=== PATIENT | female | born 1950 | race Caucasian/White ===

== ENCOUNTER 2018-06-21 11:00 | Inpatient (IN) ==
[~2018-06-21 11:00] MED LIST: *HR* Norepinephrine 4 MG/4 ML VIAL IVC ONE
[2018-06-21] MEDS ORDERED: 0.9 % Sodium Chloride 1,000 ML ONE ×2 (11:14→13:38)
[2018-06-21 11:27] LABS: ABG Base Excess -8 mEq/L (-2 to 3); ABG HCO3 18 mEq/L (21-27); ABG Oxygen Saturation 99 % (95-98); ABG PCO2 38 mmHg (35-45); ABG PO2 130 mmHg (85-104); ABG TCO2 20 mEq/L (20-26); Blood Gas Modality BiLevel; Blood Gas PEEP 16 cm H2O; Blood Gas Pressure Support 8 cm H2O
--- NOTE | 2018-06-21 11:31 | Emergency Department Note ---
Disposition Clinical Impression: Septic shock, Altered mental status, Transaminitis, Acute kidney injury, Elevated bilirubin, Abdominal pain Disposition: Admitted As Inpatient Condition: Critical Referrals: Sharon Mata MD [Partnered Physician] - Time of Disposition: 16:27 General Adult HPI - General Chief complaint: ED Altered Mental Status Stated complaint: AMS Time Seen by Provider: 06/21/18 11:15 Source: patient, EMS Limitations: altered mental status - History of Present Illness Pain Scale: 0 - Related Data Home Medications Medication Instructions Recorded Confirmed Aspirin [Ecotrin] 325 mg PO DAILY 05/31/18 06/13/18 Etodolac [Lodine] 400 mg PO BID 05/31/18 06/13/18 Omeprazole [PriLOSEC] 40 mg PO DAILY 05/31/18 06/13/18 Pravastatin Sodium 10 mg PO HS 05/31/18 06/13/18 Temazepam [Restoril] 30 mg PO HS 05/31/18 06/13/18 Carvedilol 12.5 mg PO BID 06/13/18 06/13/18 Morphine Sulfate SR (12 HR) [MS 1 tab PO BID PRN 06/21/18 06/21/18 Contin] Previous Rx's Medication Instructions Recorded Allopurinol [Zyloprim 300 MG] 300 mg PO DAILY #30 tablet 06/10/18 Capecitabine [Xeloda] 2 tab PO BID #56 tablet 06/10/18 OxyCODONE Immed Rel [Roxicodone 5 1 - 2 tab PO Q6HR PRN 30 Days #60 06/10/18 MG] tablet Allergies Allergy/AdvReac Type Severity Reaction Status Date / Time atorvastatin AdvReac Rash Verified 06/13/18 13:29 celecoxib [From Celebrex] AdvReac See Verified 05/26/18 12:13 Comments lisinopril AdvReac Cough Verified 06/13/18 13:29 metoprolol [From Lopressor] AdvReac See Verified 05/26/18 12:14 Comments rofecoxib [From Vioxx] AdvReac See Verified 06/13/18 13:29 Comments Past Medical History - Past Medical History Medical history: Reports: arthritis, cancer, coronary artery disease, GERD, hyperlipidemia, hypertension, myocardial infarction, other Surgical history: Reports: hip replacement Psychiatric history: Reports: no psych history - Social History Smoking Status: Unknown if ever smoked Smokeless Tobacco Status: No Alcohol use: Reports: occasionally Drug use: Reports: none Physical Exam - General Limitations: altered mental status General appearance: lethargic Course Vital Signs Temperature 95.9 F L 06/21/18 11:06 Pulse Rate 74 06/21/18 11:06 Respiratory Rate 14 06/21/18 11:06 Blood Pressure 80/0 06/21/18 11:06 O2 Sat by Pulse Oximetry 93 06/21/18 11:06 Temperature 95.9 F L 06/21/18 11:06 Pulse Rate 79 06/21/18 15:48 Respiratory Rate 14 06/21/18 15:48 Blood Pressure 87/44 06/21/18 15:48 O2 Sat by Pulse Oximetry 95 06/21/18 15:48 Oxygen Delivery Oxygen Delivery Simple Mask Medical Decision Making - Lab Data Result diagrams: 06/21/18 11:28 06/21/18 11:28 Lab Results 06/21/18 06/21/18 06/21/18 Range/Units 11:22 11:28 11:28 WBC 22.7 H (4.3-11.1) K/mcL RBC 4.18 (3.82-4.97) M/mcL Hgb 10.5 L (11.5-15.4) g/dL Hct 35.8 (35.3-44.9) % MCV 85.6 D (83.0-100.0) fL MCH 25.1 L (28.0-33.3) pg MCHC 29.3 L (31.6-35.5) g/dL RDW 30.2 H (11.5-14.5) % Plt Count 357 (140-400) K/mcL MPV 9.6 (9.4-12.4) fL Seg Neutrophils % 80.0 % Band Neutrophils % 18.0 H (0-4) % Lymphocytes % 2.0 % Neutrophils # 22.3 H (1.6-8.9) K/mcL Lymphocytes # 0.5 L (0.6-4.6) K/mcL Platelet Estimate Normal (Normal) Poikilocytosis 1+ A (Not Present) Anisocytosis 2+ A (Not Present) PT 20.5 H (9.4-12.1) Seconds INR 1.8 APTT 35.9 (26.0-36.0) Seconds ABG pH 7.30 L (7.32-7.45) pH Units ABG pCO2 38 (35-45) mmHg ABG pO2 130 H (85-104) mmHg ABG HCO3 18 L (21-27) mEq/L ABG Total CO2 20 (20-26) mEq/L ABG O2 Saturation 99 H (95-98) % ABG Base Excess -8 L (-2 to 3) mEq/L O2 Delivery Device BiPAP Blood Gas Modality BiLevel Inspired O2 100.0 (1-15=lpm [id number]=%) PEEP 16 cm H2O Pressure Support 8 cm H2O Sodium (136-145) mEq/L Potassium (3.5-5.1) mEq/L Chloride (98-107) mEq/L Carbon Dioxide (23-29) mEq/L BUN (8-23) mg/dL Creatinine (0.60-1.20) mg/dL Est GFR ( Amer) (> 60) Est GFR (Non-Af Amer) (> 60) BUN/Creatinine Ratio (6-26) Glucose (70-105) mg/dL Calculated Osmolality (280-300) Lactic Acid (0.5-2.2) mmol/L Calcium (8.6-10.3) mg/dL Venous Ioniz Calcium (1.15-1.35) mmol/L Phosphorus (2.7-4.5) mg/dL Magnesium (1.6-2.6) mg/dL Total Bilirubin (0.3-1.0) mg/dL Direct Bilirubin (0.0-0.2) mg/dL Indirect Bilirubin (0.0-1.2) mg/dL AST (13-39) Units/L ALT (7-52) Units/L Alkaline Phosphatase (34-104) Units/L Ammonia (16-53) mcmol/L Troponin I (< 0.04) ng/mL Serum Total Protein (6.4-8.9) g/dL Albumin (3.5-5.7) g/dL Globulin (2.4-3.5) g/dL Albumin/Globulin Ratio (1.1-2.2) TSH (0.340-5.600) mcIU/mL Peritoneal Appearance (Clear) Peritoneal Volume mL Peritoneal RBC (0.000 - 0.002) M/mcL Periton Tot Nuc Cells (0-300) TNC/mcL Periton Neutrophils % Periton Band Neuts Peritoneal Eosinophils Peritoneal Basophils Periton Lymphocytes % % Periton Monocytes % % Periton Other Cells % Peritoneal Tot Protein (No Ref Range) g/dL Peritoneal LDH (No Ref Range) Units/L Peritoneal Glucose (No Ref Range) mg/dL Peritoneal Amylase (No Ref Range) Units/L Ethyl Alcohol (Less than 10) mg/dL Hepatitis A IgM Ab (Nonreactive) Hep Bs Antigen (Nonreactive) Hep B Core IgM Ab (Nonreactive) Hepatitis C Ab Screen (Nonreactive) Blood Type Antibody Screen 06/21/18 06/21/18 06/21/18 Range/Units 11:28 11:28 11:28 WBC (4.3-11.1) K/mcL RBC (3.82-4.97) M/mcL Hgb (11.5-15.4) g/dL Hct (35.3-44.9) % MCV (83.0-100.0) fL MCH (28.0-33.3) pg MCHC (31.6-35.5) g/dL RDW (11.5-14.5) % Plt Count (140-400) K/mcL MPV (9.4-12.4) fL Seg Neutrophils % % Band Neutrophils % (0-4) % Lymphocytes % % Neutrophils # (1.6-8.9) K/mcL Lymphocytes # (0.6-4.6) K/mcL Platelet Estimate (Normal) Poikilocytosis (Not Present) Anisocytosis (Not Present) PT (9.4-12.1) Seconds INR APTT (26.0-36.0) Seconds ABG pH (7.32-7.45) pH Units ABG pCO2 (35-45) mmHg ABG pO2 (85-104) mmHg ABG HCO3 (21-27) mEq/L ABG Total CO2 (20-26) mEq/L ABG O2 Saturation (95-98) % ABG Base Excess (-2 to 3) mEq/L O2 Delivery Device Blood Gas Modality Inspired O2 (1-15=lpm tw31-350=%) PEEP cm H2O Pressure Support cm H2O Sodium 135 L (136-145) mEq/L Potassium 5.5 H (3.5-5.1) mEq/L Chloride 100 (98-107) mEq/L Carbon Dioxide 18 L (23-29) mEq/L BUN 44 H (8-23) mg/dL Creatinine 3.19 H (0.60-1.20) mg/dL Est GFR ( Amer) 17 L (> 60) Est GFR (Non-Af Amer) 14 L (> 60) BUN/Creatinine Ratio 14 (6-26) Glucose 66 L (70-105) mg/dL Calculated Osmolality 289 (280-300) Lactic Acid (0.5-2.2) mmol/L Calcium 6.9 L (8.6-10.3) mg/dL Venous Ioniz Calcium (1.15-1.35) mmol/L Phosphorus 7.6 H (2.7-4.5) mg/dL Magnesium 2.2 (1.6-2.6) mg/dL Total Bilirubin 12.1 H (0.3-1.0) mg/dL Direct Bilirubin 7.9 H (0.0-0.2) mg/dL Indirect Bilirubin 4.2 H (0.0-1.2) mg/dL AST 598 H (13-39) Units/L ALT 108 H (7-52) Units/L Alkaline Phosphatase 437 H (34-104) Units/L Ammonia 73 H (16-53) mcmol/L Troponin I 0.03 (< 0.04) ng/mL Serum Total Protein 5.0 L (6.4-8.9) g/dL Albumin 2.3 L (3.5-5.7) g/dL Globulin 2.7 (2.4-3.5) g/dL Albumin/Globulin Ratio 0.9 L (1.1-2.2) TSH 1.191 (0.340-5.600) mcIU/mL Peritoneal Appearance (Clear) Peritoneal Volume mL Peritoneal RBC (0.000 - 0.002) M/mcL Periton Tot Nuc Cells (0-300) TNC/mcL Periton Neutrophils % Periton Band Neuts Peritoneal Eosinophils Peritoneal Basophils Periton Lymphocytes % % Periton Monocytes % % Periton Other Cells % Peritoneal Tot Protein (No Ref Range) g/dL Peritoneal LDH (No Ref Range) Units/L Peritoneal Glucose (No Ref Range) mg/dL Peritoneal Amylase (No Ref Range) Units/L Ethyl Alcohol < 10 (Less than 10) mg/dL Hepatitis A IgM Ab (Nonreactive) Hep Bs Antigen (Nonreactive) Hep B Core IgM Ab (Nonreactive) Hepatitis C Ab Screen (Nonreactive) Blood Type A POSITIVE Antibody Screen NEGATIVE 06/21/18 06/21/18 06/21/18 Range/Units 11:28 11:55 12:10 WBC (4.3-11.1) K/mcL RBC (3.82-4.97) M/mcL Hgb (11.5-15.4) g/dL Hct (35.3-44.9) % MCV (83.0-100.0) fL MCH (28.0-33.3) pg MCHC (31.6-35.5) g/dL RDW (11.5-14.5) % Plt Count (140-400) K/mcL MPV (9.4-12.4) fL Seg Neutrophils % % Band Neutrophils % (0-4) % Lymphocytes % % Neutrophils # (1.6-8.9) K/mcL Lymphocytes # (0.6-4.6) K/mcL Platelet Estimate (Normal) Poikilocytosis (Not Present) Anisocytosis (Not Present) PT (9.4-12.1) Seconds INR APTT (26.0-36.0) Seconds ABG pH (7.32-7.45) pH Units ABG pCO2 (35-45) mmHg ABG pO2 (85-104) mmHg ABG HCO3 (21-27) mEq/L ABG Total CO2 (20-26) mEq/L ABG O2 Saturation (95-98) % ABG Base Excess (-2 to 3) mEq/L O2 Delivery Device Blood Gas Modality Inspired O2 (1-15=lpm [id number]=%) PEEP cm H2O Pressure Support cm H2O Sodium (136-145) mEq/L Potassium (3.5-5.1) mEq/L Chloride (98-107) mEq/L Carbon Dioxide (23-29) mEq/L BUN (8-23) mg/dL Creatinine (0.60-1.20) mg/dL Est GFR ( Amer) (> 60) Est GFR (Non-Af Amer) (> 60) BUN/Creatinine Ratio (6-26) Glucose (70-105) mg/dL Calculated Osmolality (280-300) Lactic Acid 1.9 (0.5-2.2) mmol/L Calcium (8.6-10.3) mg/dL Venous Ioniz Calcium 0.85 L (1.15-1.35) mmol/L Phosphorus (2.7-4.5) mg/dL Magnesium (1.6-2.6) mg/dL Total Bilirubin (0.3-1.0) mg/dL Direct Bilirubin (0.0-0.2) mg/dL Indirect Bilirubin (0.0-1.2) mg/dL AST (13-39) Units/L ALT (7-52) Units/L Alkaline Phosphatase (34-104) Units/L Ammonia (16-53) mcmol/L Troponin I (< 0.04) ng/mL Serum Total Protein (6.4-8.9) g/dL Albumin (3.5-5.7) g/dL Globulin (2.4-3.5) g/dL Albumin/Globulin Ratio (1.1-2.2) TSH (0.340-5.600) mcIU/mL Peritoneal Appearance (Clear) Peritoneal Volume mL Peritoneal RBC (0.000 - 0.002) M/mcL Periton Tot Nuc Cells (0-300) TNC/mcL Periton Neutrophils % Periton Band Neuts Peritoneal Eosinophils Peritoneal Basophils Periton Lymphocytes % % Periton Monocytes % % Periton Other Cells % Peritoneal Tot Protein (No Ref Range) g/dL Peritoneal LDH (No Ref Range) Units/L Peritoneal Glucose (No Ref Range) mg/dL Peritoneal Amylase (No Ref Range) Units/L Ethyl Alcohol (Less than 10) mg/dL Hepatitis A IgM Ab Nonreactive (Nonreactive) Hep Bs Antigen Nonreactive (Nonreactive) Hep B Core IgM Ab Nonreactive (Nonreactive) Hepatitis C Ab Screen Nonreactive (Nonreactive) Blood Type Antibody Screen 06/21/18 06/21/18 Range/Units 13:47 13:47 WBC (4.3-11.1) K/mcL RBC (3.82-4.97) M/mcL Hgb (11.5-15.4) g/dL Hct (35.3-44.9) % MCV (83.0-100.0) fL MCH (28.0-33.3) pg MCHC (31.6-35.5) g/dL RDW (11.5-14.5) % Plt Count (140-400) K/mcL MPV (9.4-12.4) fL Seg Neutrophils % % Band Neutrophils % (0-4) % Lymphocytes % % Neutrophils # (1.6-8.9) K/mcL Lymphocytes # (0.6-4.6) K/mcL Platelet Estimate (Normal) Poikilocytosis (Not Present) Anisocytosis (Not Present) PT (9.4-12.1) Seconds INR APTT (26.0-36.0) Seconds ABG pH (7.32-7.45) pH Units ABG pCO2 (35-45) mmHg ABG pO2 (85-104) mmHg ABG HCO3 (21-27) mEq/L ABG Total CO2 (20-26) mEq/L ABG O2 Saturation (95-98) % ABG Base Excess (-2 to 3) mEq/L O2 Delivery Device Blood Gas Modality Inspired O2 (1-15=lpm [id number]=%) PEEP cm H2O Pressure Support cm H2O Sodium (136-145) mEq/L Potassium (3.5-5.1) mEq/L Chloride (98-107) mEq/L Carbon Dioxide (23-29) mEq/L BUN (8-23) mg/dL Creatinine (0.60-1.20) mg/dL Est GFR ( Amer) (> 60) Est GFR (Non-Af Amer) (> 60) BUN/Creatinine Ratio (6-26) Glucose (70-105) mg/dL Calculated Osmolality (280-300) Lactic Acid (0.5-2.2) mmol/L Calcium (8.6-10.3) mg/dL Venous Ioniz Calcium (1.15-1.35) mmol/L Phosphorus (2.7-4.5) mg/dL Magnesium (1.6-2.6) mg/dL Total Bilirubin (0.3-1.0) mg/dL Direct Bilirubin (0.0-0.2) mg/dL Indirect Bilirubin (0.0-1.2) mg/dL AST (13-39) Units/L ALT (7-52) Units/L Alkaline Phosphatase (34-104) Units/L Ammonia (16-53) mcmol/L Troponin I (< 0.04) ng/mL Serum Total Protein (6.4-8.9) g/dL Albumin (3.5-5.7) g/dL Globulin (2.4-3.5) g/dL Albumin/Globulin Ratio (1.1-2.2) TSH (0.340-5.600) mcIU/mL Peritoneal Appearance CLOUDY (Clear) Peritoneal Volume 59.0 mL Peritoneal RBC 0.002 (0.000 - 0.002) M/mcL Periton Tot Nuc Cells > 88684 H (0-300) TNC/mcL Periton Neutrophils 96.0 % Periton Band Neuts Test Not Performed Peritoneal Eosinophils Test Not Performed Peritoneal Basophils Test Not Performed Periton Lymphocytes % 2.0 % Periton Monocytes % 2.0 % Periton Other Cells % Test Not Performed Peritoneal Tot Protein < 3.0 (No Ref Range) g/dL Peritoneal LDH 844 (No Ref Range) Units/L Peritoneal Glucose 27 (No Ref Range) mg/dL Peritoneal Amylase < 10 (No Ref Range) Units/L Ethyl Alcohol (Less than 10) mg/dL Hepatitis A IgM Ab (Nonreactive) Hep Bs Antigen (Nonreactive) Hep B Core IgM Ab (Nonreactive) Hepatitis C Ab Screen (Nonreactive) Blood Type Antibody Screen Critical Care Time Critical Care Time: Yes Total Critical Care Time: 60 Attestation: Critical care performed: Time is exclusive of separately billable procedures. Time includes: direct patient care, patient reassessment, coordination of patient care, interpretation of data (laboratory data, radiology data, and respiratory data), review of patient's medical records, medical consultation and documentation of patient care. Procedures included in critical care time: Procedures excluded from critical care time: Attestation Statement - Attestation Attestation: I, Malachi Beckford DO, examined this patient [id number] and my medical decision-making was reviewed with Dr. Bud Shepard, Resident Physician. I agree with the documented findings, disposition and treatment plan as described except to the extent set forth below. Please see my progress notes for details. 67-year-old female presents to the emergency room by EMS for evaluation of altered mentation. EMS transportation was uneventful outside of the patient having hypotension and persistent confusion. EMS disclose that the patient was recently diagnosed with liver cancer and has not had any treatment yet at this time. The said at the home that she has been progressively getting more weak and unable to take care of herself. He was unable to get her into her bed this morning and that is why he called the squad. After he had called EMS to the house he did call the cancer center and they recommended that the patient be brought to the emergency room. Prior to the events here today, the is denying that the patient complained of chest pain, shortness of breath, headache, vision changes, nausea, vomiting, diarrhea. No recent fevers or chills. No new medications or treatment have been provided. Patient has not been altered during this cancer evaluation. She is followed by the cancer center at our facility. On arrival by EMS the patient did open her eyes to verbal stimulus and would follow commands appropriately. She is confused and slow to respond but otherwise is still mentating. EMS was unable to establish IV access. There is a newly placed port in the left anterior chest wall. Patient's head is atraumatic. Pupils are equal round reactive extraocular muscles are intact. Lungs appear to be clear to auscultation bilaterally. Heart is regular. Abdomen is distended and tense and causes some discomfort with palpation during the evaluation. Patient has been having bowel movements according to family. Extremities appear to be normal. Skin has significant jaundice presentation to it as well as the sclera. IV access will be obtained peripherally and the port will be accessed. Detailed workup including ABG, CBC, chemistry, liver function, lactic acid and screening evaluation for other me dical etiology will be completed. Chest x-ray CT the head CT of the chest and abdomen will also be added on for evaluation at this time. BiPAP was placed immediately secondary to the patient's hypoxia. She is tolerating it at this point and still waking up. I discussed with the at the bedside about the patient's wishes further progression of her care. She is still wishing to be a full code at this time. If need be the patient will be intubated for stabilization of her airway management. Currently she does not require it but we will monitor closely. Disposition will be admission. ABG was reviewed by myself at the bedside with a pH of 7.29. CO2 of 37. Oxygen of 138. Bicarbo sami of 18. Symptoms appear to be consistent with a metabolic acidosis. Medical treatment will be started this time. See detailed documentation the physical exam, medical intervention, medical decision-making, conversations with the family and disposition the resident physician's note. 60 minutes of critical care will be applied the patient's treatment course secondary to multidisciplinary intervention evaluation consultations. Patient will be prophylactically treated for spontaneous bacterial peritonitis with Rocephin. Interventional radiology will be contacted to perform a paracentesis considering the bedside ultrasound did not show any large fluid accumulations. 1315 Interventional radiology is at the bedside. Patient was ordered on 2 L bolus initially and is C7 100 mL of this time. Norepinephrine has been titrating up. The remainder the 2 L bolus will be given as well as maintenance fluids with D5 normal saline to be started at 125 mL an hour. Patient has not had any urine output yet at this point. We will continue to monitor here closely. 1445 Central line was completed under my direct supervision in the emergency department. Resident physician Dr. Ford completed the procedure without any difficulty. Postprocedural chest x-rays ordered. No complications were noted. Bleeding was controlled. Minimal blood loss obtained. Chest x-ray was ordered at this time. Third liter of fluid to complete the 30 mix per kilo bolus for the patient was ordered. Broad-spectrum antibiotics were started as well. ICU attending Dr. Veloz was at the bedside and reviewed the patient's care as well as medical intervention. No other acute issues at this time. Patient will be transported to the ICU and imaging will be completed in transport. No other concerns or issues. Patient is mentating appropriately throughout the treatment course and does not show any acute signs of decompensation yet at this time. Continuation of fluid resuscitation medication intervention and treatment will be completed in the inpatient setting. Patient is potentially critically ill with the main issue being her liver cancer causing multiple other medical problems. Continuation of care will be completed in the hospital setting
--- NOTE | 2018-06-21 11:50 | Emergency Department Note ---
Disposition Clinical Impression: Septic shock, Transaminitis, Acute kidney injury, Elevated bilirubin Altered mental status Qualifiers: Altered mental status type: unspecified Qualified Code(s): R41.82 - Altered mental status, unspecified Abdominal pain Qualifiers: Abdominal location: generalized Qualified Code(s): R10.84 - Generalized abdominal pain Disposition: Admitted As Inpatient Condition: Critical Altered Mental Status HPI - General Chief Complaint: ED Altered Mental Status Stated Complaint: AMS Time Seen by Provider: 06/21/18 11:15 Source: patient, EMS Mode of arrival: EMS Limitations: altered mental status Nursing Notes Reviewed: Yes Vital Signs Reviewed: Yes - History of Present Illness HPI Narrative: 67-year-old female history of liver cancer without previous treatment who presents to the ER via EMS due to altered mental status. Patient is a poor historian and most information gathered by EMS. States that she has been worsening for the last week. States that she has been jaundiced at home. She just had a port placed around a week ago. The patient is alert and oriented times to arrival. She follows commands. Reports abdominal pain. MD complaint: altered mental status Onset (ago): day(s) Context: liver disease Associated symptoms: Reports: other (Abdominal pain) - Related Data Home Medications Medication Instructions Recorded Confirmed Aspirin [Ecotrin] 325 mg PO DAILY 05/31/18 06/21/18 Etodolac [Lodine] 400 mg PO BID 05/31/18 06/21/18 Omeprazole [PriLOSEC] 40 mg PO DAILY 05/31/18 06/21/18 Pravastatin Sodium 10 mg PO HS 05/31/18 06/21/18 Temazepam [Restoril] 30 mg PO HS 05/31/18 06/21/18 Carvedilol 12.5 mg PO BID 06/13/18 06/21/18 Morphine Sulfate SR (12 HR) [MS 1 tab PO BID PRN 06/21/18 06/21/18 Contin] Previous Rx's Medication Instructions Recorded Allopurinol [Zyloprim 300 MG] 300 mg PO DAILY #30 tablet 06/10/18 Capecitabine [Xeloda] 2 tab PO BID #56 tablet 06/10/18 OxyCODONE Immed Rel [Roxicodone 5 1 - 2 tab PO Q6HR PRN 30 Days #60 06/10/18 MG] tablet Allergies Allergy/AdvReac Type Severity Reaction Status Date / Time atorvastatin AdvReac Rash Verified 06/13/18 13:29 celecoxib [From Celebrex] AdvReac See Verified 05/26/18 12:13 Comments lisinopril AdvReac Cough Verified 06/13/18 13:29 metoprolol [From Lopressor] AdvReac See Verified 05/26/18 12:14 Comments rofecoxib [From Vioxx] AdvReac See Verified 06/13/18 13:29 Comments All systems ED: reviewed and negative except as stated. Cardiovascular: Denies: chest pain Respiratory: Denies: dyspnea Gastrointestinal: Reports: abdominal pain, nausea, vomiting. Denies: diarrhea Past Medical History - Past Medical History Attestation: Yes The following information was validated with the patient. Source: patient, old records reviewed Medical history: Reports: arthritis, cancer, coronary artery disease, GERD, hyperlipidemia, hypertension, myocardial infarction, other Surgical history: Reports: hip replacement Psychiatric history: Reports: no psych history - Social History Smoking Status: Unknown if ever smoked Smokeless Tobacco Status: No Alcohol use: Reports: occasionally Drug use: Reports: none Physical Exam - General Limitations: altered mental status General appearance: lethargic - Head Head exam: atraumatic, normocephalic, normal inspection - Eye Eye exam: Present: scleral icterus - ENT ENT exam: normal exam, mucous membranes dry - Neck Neck exam: Present: normal inspection - Chest Chest inspection: Present: normal inspection, symmetric chest wall rise - Respiratory Respiratory exam: Present: normal lung sounds bilaterally - Cardiovascular Cardiovascular exam: Present: regular rate, normal rhythm, normal heart sounds - Abdominal Exam Abdominal exam: Present: distention (Grossly distended with diffuse moderate tenderness). Absent: guarding - Extremities Exam Extremities exam: Present: normal inspection, full ROM - Expanded Upper Extremity Exam Shoulder exam: Present: normal inspection, full ROM Arm exam: Present: normal inspection, full ROM Elbow exam: Present: normal inspection, full ROM Forearm/Wrist exam: Present: normal inspection, full ROM Hand exam: Present: normal inspection, full ROM Vascular exam: Normal: radial pulse - Expanded Lower Extremity Exam Hip/Pelvis exam: Present: normal inspection, full ROM Upper leg exam: Present: normal inspection, full ROM Knee exam: Present: normal inspection, full ROM Lower leg exam: Present: normal inspection, full ROM, swelling Ankle exam: Present: normal inspection, full ROM Foot/toe exam: Present: normal inspection, full ROM - Neurological Exam Neurological exam: Present: alert, other (Follows commands, moves all extremities). Absent: oriented X3 - Skin Skin exam: Present: other (Jaundice) Course Course Narrative: Patient seen and examined. Vital signs reviewed. Plan for EKG, CT imaging of the head, chest and abdomen as well as labs including lactate and cultures. She is noted to be hypotensive on arrival. We will also try BiPAP for respiratory component. Patient to start IV fluid bolus. - Reevaluation(s) Reevaluation #1: Patient was noted to be hypotensive around 58 systolic soon after BiPAP. This was discontinued. The patient will start on Levaquin fed. We will also cover her for spontaneous bacterial peritonitis with Rocephin and discussed with interventional radiology for diagnostic paracentesis. Reevaluation #2: We did titrate up on the patient's levophed to 15mcg. continuing IV fluid resuscitation. Labs demonstrate hypoglycemia so D5 normal saline has been ordered for maintenance fluids. The patient was evaluated by the intensive care provider in the emergency department. We will add on vancomycin and Zosyn for broad-spectrum coverage. Interventional radiology was able to perform a diagnostic paracentesis as well. Central access was obtained prior to the patient going to the intensive care unit. Vital Signs Temperature 95.9 F L 06/21/18 11:06 Pulse Rate 74 06/21/18 11:06 Respiratory Rate 14 06/21/18 11:06 Blood Pressure 80/0 06/21/18 11:06 O2 Sat by Pulse Oximetry 93 06/21/18 11:06 Temperature 95.9 F L 06/21/18 11:06 Pulse Rate 79 06/21/18 15:48 Respiratory Rate 14 06/21/18 15:48 Blood Pressure 87/44 06/21/18 15:48 O2 Sat by Pulse Oximetry 95 06/21/18 15:48 Oxygen Delivery Oxygen Delivery Simple Mask Altered Mental Status - MDM Narrative Medical decision making narrative: 67-year-old female presenting for altered mental status in the setting of colon cancer with metastasis. She was noted to be hypotensive upon arrival requiring multiple liters of fluids also requiring vasopressor support. Patient alert and oriented 2 following commands and protecting her airway. She was placed on nasal cannula, nonrebreather as well as BiPAP and then back to nasal cannula tolerating well. She is noted to have a transaminitis, elevated bilirubin with a leukocytosis of 22. Etiology concern for spontaneous bacterial peritonitis. Interventional radiology performed a diagnostic paracentesis with results pending. The patient was given Rocephin for coverage. She was also given broad-spectrum coverage with vancomycin and Zosyn. She remained ill but hemodynamically stable in the emergency department. She was evaluated by the equipment technician at bedside. The patient will have CT imaging and go straight to the intensive care unit for further management. - Lab Data Lab results reviewed: Yes I reviewed the patient's lab results. Result diagrams: 06/21/18 11:28 06/21/18 11:28 Lab Results 06/21/18 06/21/18 06/21/18 Range/Units 11:22 11:28 11:28 WBC 22.7 H (4.3-11.1) K/mcL RBC 4.18 (3.82-4.97) M/mcL Hgb 10.5 L (11.5-15.4) g/dL Hct 35.8 (35.3-44.9) % MCV 85.6 D (83.0-100.0) fL MCH 25.1 L (28.0-33.3) pg MCHC 29.3 L (31.6-35.5) g/dL RDW 30.2 H (11.5-14.5) % Plt Count 357 (140-400) K/mcL MPV 9.6 (9.4-12.4) fL Seg Neutrophils % 80.0 % Band Neutrophils % 18.0 H (0-4) % Lymphocytes % 2.0 % Neutrophils # 22.3 H (1.6-8.9) K/mcL Lymphocytes # 0.5 L (0.6-4.6) K/mcL Platelet Estimate Normal (Normal) Poikilocytosis 1+ A (Not Present) Anisocytosis 2+ A (Not Present) PT 20.5 H (9.4-12.1) Seconds INR 1.8 APTT 35.9 (26.0-36.0) Seconds ABG pH 7.30 L (7.32-7.45) pH Units ABG pCO2 38 (35-45) mmHg ABG pO2 130 H (85-104) mmHg ABG HCO3 18 L (21-27) mEq/L ABG Total CO2 20 (20-26) mEq/L ABG O2 Saturation 99 H (95-98) % ABG Base Excess -8 L (-2 to 3) mEq/L O2 Delivery Device BiPAP Blood Gas Modality BiLevel Inspired O2 100.0 (1-15=lpm [id number]=%) PEEP 16 cm H2O Pressure Support 8 cm H2O Sodium (136-145) mEq/L Potassium (3.5-5.1) mEq/L Chloride (98-107) mEq/L Carbon Dioxide (23-29) mEq/L BUN (8-23) mg/dL Creatinine (0.60-1.20) mg/dL Est GFR ( Amer) (> 60) Est GFR (Non-Af Amer) (> 60) BUN/Creatinine Ratio (6-26) Glucose (70-105) mg/dL Calculated Osmolality (280-300) Lactic Acid (0.5-2.2) mmol/L Calcium (8.6-10.3) mg/dL Venous Ioniz Calcium (1.15-1.35) mmol/L Phosphorus (2.7-4.5) mg/dL Magnesium (1.6-2.6) mg/dL Total Bilirubin (0.3-1.0) mg/dL Direct Bilirubin (0.0-0.2) mg/dL Indirect Bilirubin (0.0-1.2) mg/dL AST (13-39) Units/L ALT (7-52) Units/L Alkaline Phosphatase (34-104) Units/L Ammonia (16-53) mcmol/L Troponin I (< 0.04) ng/mL Serum Total Protein (6.4-8.9) g/dL Albumin (3.5-5.7) g/dL Globulin (2.4-3.5) g/dL Albumin/Globulin Ratio (1.1-2.2) TSH (0.340-5.600) mcIU/mL Peritoneal Appearance (Clear) Peritoneal Volume mL Peritoneal RBC (0.000 - 0.002) M/mcL Periton Tot Nuc Cells (0-300) TNC/mcL Periton Neutrophils % Periton Band Neuts Peritoneal Eosinophils Peritoneal Basophils Periton Lymphocytes % % Periton Monocytes % % Periton Other Cells % Peritoneal Tot Protein (No Ref Range) g/dL Peritoneal LDH (No Ref Range) Units/L Peritoneal Glucose (No Ref Range) mg/dL Peritoneal Amylase (No Ref Range) Units/L Ethyl Alcohol (Less than 10) mg/dL Hepatitis A IgM Ab (Nonreactive) Hep Bs Antigen (Nonreactive) Hep B Core IgM Ab (Nonreactive) Hepatitis C Ab Screen (Nonreactive) Blood Type Antibody Screen 06/21/18 06/21/18 06/21/18 Range/Units 11:28 11:28 11:28 WBC (4.3-11.1) K/mcL RBC (3.82-4.97) M/mcL Hgb (11.5-15.4) g/dL Hct (35.3-44.9) % MCV (83.0-100.0) fL MCH (28.0-33.3) pg MCHC (31.6-35.5) g/dL RDW (11.5-14.5) % Plt Count (140-400) K/mcL MPV (9.4-12.4) fL Seg Neutrophils % % Band Neutrophils % (0-4) % Lymphocytes % % Neutrophils # (1.6-8.9) K/mcL Lymphocytes # (0.6-4.6) K/mcL Platelet Estimate (Normal) Poikilocytosis (Not Present) Anisocytosis (Not Present) PT (9.4-12.1) Seconds INR APTT (26.0-36.0) Seconds ABG pH (7.32-7.45) pH Units ABG pCO2 (35-45) mmHg ABG pO2 (85-104) mmHg ABG HCO3 (21-27) mEq/L ABG Total CO2 (20-26) mEq/L ABG O2 Saturation (95-98) % ABG Base Excess (-2 to 3) mEq/L O2 Delivery Device Blood Gas Modality Inspired O2 (1-15=lpm [id number]=%) PEEP cm H2O Pressure Support cm H2O Sodium 135 L (136-145) mEq/L Potassium 5.5 H (3.5-5.1) mEq/L Chloride 100 (98-107) mEq/L Carbon Dioxide 18 L (23-29) mEq/L BUN 44 H (8-23) mg/dL Creatinine 3.19 H (0.60-1.20) mg/dL Est GFR ( Amer) 17 L (> 60) Est GFR (Non-Af Amer) 14 L (> 60) BUN/Creatinine Ratio 14 (6-26) Glucose 66 L (70-105) mg/dL Calculated Osmolality 289 (280-300) Lactic Acid (0.5-2.2) mmol/L Calcium 6.9 L (8.6-10.3) mg/dL Venous Ioniz Calcium (1.15-1.35) mmol/L Phosphorus 7.6 H (2.7-4.5) mg/dL Magnesium 2.2 (1.6-2.6) mg/dL Total Bilirubin 12.1 H (0.3-1.0) mg/dL Direct Bilirubin 7.9 H (0.0-0.2) mg/dL Indirect Bilirubin 4.2 H (0.0-1.2) mg/dL AST 598 H (13-39) Units/L ALT 108 H (7-52) Units/L Alkaline Phosphatase 437 H (34-104) Units/L Ammonia 73 H (16-53) mcmol/L Troponin I 0.03 (< 0.04) ng/mL Serum Total Protein 5.0 L (6.4-8.9) g/dL Albumin 2.3 L (3.5-5.7) g/dL Globulin 2.7 (2.4-3.5) g/dL Albumin/Globulin Ratio 0.9 L (1.1-2.2) TSH 1.191 (0.340-5.600) mcIU/mL Peritoneal Appearance (Clear) Peritoneal Volume mL Peritoneal RBC (0.000 - 0.002) M/mcL Periton Tot Nuc Cells (0-300) TNC/mcL Periton Neutrophils % Periton Band Neuts Peritoneal Eosinophils Peritoneal Basophils Periton Lymphocytes % % Periton Monocytes % % Periton Other Cells % Peritoneal Tot Protein (No Ref Range) g/dL Peritoneal LDH (No Ref Range) Units/L Peritoneal Glucose (No Ref Range) mg/dL Peritoneal Amylase (No Ref Range) Units/L Ethyl Alcohol < 10 (Less than 10) mg/dL Hepatitis A IgM Ab (Nonreactive) Hep Bs Antigen (Nonreactive) Hep B Core IgM Ab (Nonreactive) Hepatitis C Ab Screen (Nonreactive) Blood Type A POSITIVE Antibody Screen NEGATIVE 06/21/18 06/21/18 06/21/18 Range/Units 11:28 11:55 12:10 WBC (4.3-11.1) K/mcL RBC (3.82-4.97) M/mcL Hgb (11.5-15.4) g/dL Hct (35.3-44.9) % MCV (83.0-100.0) fL MCH (28.0-33.3) pg MCHC (31.6-35.5) g/dL RDW (11.5-14.5) % Plt Count (140-400) K/mcL MPV (9.4-12.4) fL Seg Neutrophils % % Band Neutrophils % (0-4) % Lymphocytes % % Neutrophils # (1.6-8.9) K/mcL Lymphocytes # (0.6-4.6) K/mcL Platelet Estimate (Normal) Poikilocytosis (Not Present) Anisocytosis (Not Present) PT (9.4-12.1) Seconds INR APTT (26.0-36.0) Seconds ABG pH (7.32-7.45) pH Units ABG pCO2 (35-45) mmHg ABG pO2 (85-104) mmHg ABG HCO3 (21-27) mEq/L ABG Total CO2 (20-26) mEq/L ABG O2 Saturation (95-98) % ABG Base Excess (-2 to 3) mEq/L O2 Delivery Device Blood Gas Modality Inspired O2 (1-15=lpm va20-923=%) PEEP cm H2O Pressure Support cm H2O Sodium (136-145) mEq/L Potassium (3.5-5.1) mEq/L Chloride (98-107) mEq/L Carbon Dioxide (23-29) mEq/L BUN (8-23) mg/dL Creatinine (0.60-1.20) mg/dL Est GFR ( Amer) (> 60) Est GFR (Non-Af Amer) (> 60) BUN/Creatinine Ratio (6-26) Glucose (70-105) mg/dL Calculated Osmolality (280-300) Lactic Acid 1.9 (0.5-2.2) mmol/L Calcium (8.6-10.3) mg/dL Venous Ioniz Calcium 0.85 L (1.15-1.35) mmol/L Phosphorus (2.7-4.5) mg/dL Magnesium (1.6-2.6) mg/dL Total Bilirubin (0.3-1.0) mg/dL Direct Bilirubin (0.0-0.2) mg/dL Indirect Bilirubin (0.0-1.2) mg/dL AST (13-39) Units/L ALT (7-52) Units/L Alkaline Phosphatase (34-104) Units/L Ammonia (16-53) mcmol/L Troponin I (< 0.04) ng/mL Serum Total Protein (6.4-8.9) g/dL Albumin (3.5-5.7) g/dL Globulin (2.4-3.5) g/dL Albumin/Globulin Ratio (1.1-2.2) TSH (0.340-5.600) mcIU/mL Peritoneal Appearance (Clear) Peritoneal Volume mL Peritoneal RBC (0.000 - 0.002) M/mcL Periton Tot Nuc Cells (0-300) TNC/mcL Periton Neutrophils % Periton Band Neuts Peritoneal Eosinophils Peritoneal Basophils Periton Lymphocytes % % Periton Monocytes % % Periton Other Cells % Peritoneal Tot Protein (No Ref Range) g/dL Peritoneal LDH (No Ref Range) Units/L Peritoneal Glucose (No Ref Range) mg/dL Peritoneal Amylase (No Ref Range) Units/L Ethyl Alcohol (Less than 10) mg/dL Hepatitis A IgM Ab Nonreactive (Nonreactive) Hep Bs Antigen Nonreactive (Nonreactive) Hep B Core IgM Ab Nonreactive (Nonreactive) Hepatitis C Ab Screen Nonreactive (Nonreactive) Blood Type Antibody Screen 06/21/18 06/21/18 Range/Units 13:47 13:47 WBC (4.3-11.1) K/mcL RBC (3.82-4.97) M/mcL Hgb (11.5-15.4) g/dL Hct (35.3-44.9) % MCV (83.0-100.0) fL MCH (28.0-33.3) pg MCHC (31.6-35.5) g/dL RDW (11.5-14.5) % Plt Count (140-400) K/mcL MPV (9.4-12.4) fL Seg Neutrophils % % Band Neutrophils % (0-4) % Lymphocytes % % Neutrophils # (1.6-8.9) K/mcL Lymphocytes # (0.6-4.6) K/mcL Platelet Estimate (Normal) Poikilocytosis (Not Present) Anisocytosis (Not Present) PT (9.4-12.1) Seconds INR APTT (26.0-36.0) Seconds ABG pH (7.32-7.45) pH Units ABG pCO2 (35-45) mmHg ABG pO2 (85-104) mmHg ABG HCO3 (21-27) mEq/L ABG Total CO2 (20-26) mEq/L ABG O2 Saturation (95-98) % ABG Base Excess (-2 to 3) mEq/L O2 Delivery Device Blood Gas Modality Inspired O2 (1-15=lpm nt68-413=%) PEEP cm H2O Pressure Support cm H2O Sodium (136-145) mEq/L Potassium (3.5-5.1) mEq/L Chloride (98-107) mEq/L Carbon Dioxide (23-29) mEq/L BUN (8-23) mg/dL Creatinine (0.60-1.20) mg/dL Est GFR ( Amer) (> 60) Est GFR (Non-Af Amer) (> 60) BUN/Creatinine Ratio (6-26) Glucose (70-105) mg/dL Calculated Osmolality (280-300) Lactic Acid (0.5-2.2) mmol/L Calcium (8.6-10.3) mg/dL Venous Ioniz Calcium (1.15-1.35) mmol/L Phosphorus (2.7-4.5) mg/dL Magnesium (1.6-2.6) mg/dL Total Bilirubin (0.3-1.0) mg/dL Direct Bilirubin (0.0-0.2) mg/dL Indirect Bilirubin (0.0-1.2) mg/dL AST (13-39) Units/L ALT (7-52) Units/L Alkaline Phosphatase (34-104) Units/L Ammonia (16-53) mcmol/L Troponin I (< 0.04) ng/mL Serum Total Protein (6.4-8.9) g/dL Albumin (3.5-5.7) g/dL Globulin (2.4-3.5) g/dL Albumin/Globulin Ratio (1.1-2.2) TSH (0.340-5.600) mcIU/mL Peritoneal Appearance CLOUDY (Clear) Peritoneal Volume 59.0 mL Peritoneal RBC 0.002 (0.000 - 0.002) M/mcL Periton Tot Nuc Cells > 64278 H (0-300) TNC/mcL Periton Neutrophils 96.0 % Periton Band Neuts Test Not Performed Peritoneal Eosinophils Test Not Performed Peritoneal Basophils Test Not Performed Periton Lymphocytes % 2.0 % Periton Monocytes % 2.0 % Periton Other Cells % Test Not Performed Peritoneal Tot Protein < 3.0 (No Ref Range) g/dL Peritoneal LDH 844 (No Ref Range) Units/L Peritoneal Glucose 27 (No Ref Range) mg/dL Peritoneal Amylase < 10 (No Ref Range) Units/L Ethyl Alcohol (Less than 10) mg/dL Hepatitis A IgM Ab (Nonreactive) Hep Bs Antigen (Nonreactive) Hep B Core IgM Ab (Nonreactive) Hepatitis C Ab Screen (Nonreactive) Blood Type Antibody Screen - Radiology Data Radiology results reviewed: Yes I reviewed the patient's radiology results. Chest X-Ray 06/21/18 11:15 IMPRESSION: 1. Lower lung volumes, otherwise, no acute cardiopulmonary disease. D/ / 06/21/2018 12:01:00 Yasmin Springer MD / Dulce Ross Interpreting Provider: Yasmin Springer MD - EKG Data EKG attestation: Yes I reviewed and interpreted this EKG. EKG results narrative: EKG demonstrates sinus rhythm with a rate of 75 bpm. Normal axis. Normal intervals. Normal R-wave progression. T-wave inversions in lead 3 and aVF. No gross ST elevations or depressions. No acute ischemic findings. TPA Checklist - LKW: 3-4.5 hrs Add. Warnings/Precautions Patient/family understanding: The patient/family members have been counseled and understood the risk, benefit, and alternatives of treatment. Attestation Statement - Attestation Attestation: I, Malachi Beckford DO, examined this patient [id number] and my medical decision-making was reviewed with Dr. Bud Shepard, Resident Physician. I agree with the documented findings, disposition and treatment plan as described except to the extent set forth below. Please see my progress notes for details.
[2018-06-21] MEDS ORDERED: cefTRIAXone 1,000 MG in Water for inj. (sterile) 20 ML 10 ML IVP ONE (11:53)
[2018-06-21 12:00] LABS: Hematocrit 35.8 % (35.3-44.9); Hemoglobin 10.5 g/dL (11.5-15.4); Mean Corpuscular HGB Conc 29.3 g/dL (31.6-35.5); Mean Corpuscular Hemoglobin 25.1 pg (28.0-33.3); Mean Corpuscular Volume 85.6 fL (83.0-100.0); Mean Platelet Volume 9.6 fL (9.4-12.4); Platelet Count 357 K/mcL (140-400); Red Blood Count 4.18 M/mcL (3.82-4.97); Red Cell Distribution Width 30.2 % (11.5-14.5)
[2018-06-21 12:10] LABS: INR 1.8; Prothrombin Time 20.5 Seconds (9.4-12.1)
[2018-06-21 12:12] LABS: Activated Partial Thrombo Time 35.9 Seconds (26.0-36.0)
[2018-06-21 12:13] LABS: VBG Ionized Calcium 0.85 mmol/L (1.15-1.35)
[2018-06-21 12:20] LABS: Alanine Aminotransferase 108 Units/L (7-52); Albumin 2.3 g/dL (3.5-5.7); Albumin/Globulin Ratio 0.9 (1.1-2.2); Alkaline Phosphatase 437 Units/L (34-104); Aspartate Amino Transferase 598 Units/L (13-39); BUN/Creatinine Ratio 14 (6-26); Bilirubin,Direct 7.9 mg/dL (0.0-0.2); Bilirubin,Indirect 4.2 mg/dL (0.0-1.2); Bilirubin,Total 12.1 mg/dL (0.3-1.0); Blood Urea Nitrogen 44 mg/dL (8-23); Calcium 6.9 mg/dL (8.6-10.3); Carbon Dioxide 18 mEq/L (23-29); Chloride 100 mEq/L (98-107); Ethanol < 10 mg/dL (Less than 10); Globulin 2.7 g/dL (2.4-3.5); Glucose 66 mg/dL (70-105); Osmolality,Calculated 289 (280-300); Potassium 5.5 mEq/L (3.5-5.1); Sodium 135 mEq/L (136-145); Troponin I 0.03 ng/mL (< 0.04); eGFR For Non-African Americans 14 (> 60)
[2018-06-21] MEDS: 0.9 % Sodium Chloride 1,000 ML IVC SCH ×2 (12:30→16:56)
[2018-06-21 12:34] LABS: Thyroid Stimulating Hormone 1.191 mcIU/mL (0.340-5.600)
[2018-06-21 12:41] LABS: Lymphocytes # 0.5 K/mcL (0.6-4.6); Neutrophils # 22.3 K/mcL (1.6-8.9); Platelet Estimate Normal (Normal)
[2018-06-21 12:42] LABS: Anisocytosis 2+ (Not Present); Poikilocytosis 1+ (Not Present)
[2018-06-21] MEDS: Norepinephrine 4 MG in D5% in Water 250 ML IVC SCH ×3 (13:00→20:03)
[2018-06-21 13:03] LABS: Hepatitis A Antibody IgM Nonreactive (Nonreactive); Hepatitis B Core IgM Nonreactive (Nonreactive); Hepatitis B Surface Antigen Nonreactive (Nonreactive); Hepatitis C Virus Antibody Nonreactive (Nonreactive)
[2018-06-21 13:10] LABS: Magnesium 2.2 mg/dL (1.6-2.6); Phosphorous 7.6 mg/dL (2.7-4.5)
[2018-06-21] MEDS: D5% in 0.9% NACL 1,000 ML IVC SCH ×2 (13:48→20:16)
[2018-06-21] MEDS ORDERED: Piperacillin/Tazobactam 3.375 GM in Water for inj. (sterile) 20 ML 20 ML IVP ONE (14:08)
[2018-06-21] MEDS ORDERED: Hydrocortisone Sodium Succ 100 MG/2 ML VIAL IVP ONE (14:08)
[2018-06-21 14:23] LABS: RBC,Peritoneal Fluid 0.002 M/mcL
[2018-06-21 14:41] LABS: Amylase,Peritoneal Fluid < 10 Units/L (No Ref Range); Glucose,Peritoneal Fluid 27 mg/dL (No Ref Range); LDH,Peritoneal Fluid 844 Units/L (No Ref Range); Total Protein,Peritoneal Fluid < 3.0 g/dL (No Ref Range)
[2018-06-21 14:46] LABS: Appearance of Peritoneal Fl CLOUDY (Clear)
[2018-06-21] MEDS ORDERED: 0.9 % Sodium Chloride 1,000 ML IVC ONE (14:57)
[2018-06-21] MEDS ORDERED: Lactulose 200 GM, Sodium Chloride IRRigation 700 ML RC ONE (15:05)
--- NOTE | 2018-06-21 16:13 | Electrocardiograph Report ---
[facility] Test Date: 2018-06-21 Pat Name: Maddie Obrien Department: [id number] Room: [facility] Gender: F Cat Breeder: : 1950 Requested By: Bud Shpeard Order Number: [id number] Reading MD: Francisco Jack Measurements Intervals [place] Rate: 75 P: 39 IN: 161 QRS: 15 QRSD: 106 T: -14 QT: 440 QTc: 492 Interpretive Statements Sinus rhythm Probable left atrial enlargement Inferior infarct, age indeterminate Electronically Signed On 06-21-2018 16:12:10 EDT by Francisco Jack
[2018-06-21] MEDS ORDERED: Sodium Bicarbonate 150 MEQ in D5% in Water 1,000 ML IVC SCH ×2 (17:30→21:29)
--- NOTE | 2018-06-21 19:21 | IR Procedure Note ---
Date of procedure: 06/21/18 Consent Obtained: Verbal consent, Written consent Timeout: Correct patient and procedure verified, Correct site verified, Time out performed, Skin prep completed Local anesthetic: Lidocaine 1% Indications: suspected SBP Procedure Performed: paracentesis Was there an investigative assistant present: No Site/Technique: RLQ Estimated blood loss (cc): 1 Complications: None; Tolerated procedure well Post Procedure Treatment Plan: sample sent to lab Specimen: 60 cc cloudy ascites aspirated
--- NOTE | 2018-06-21 19:28 | Procedure Note ---
Date of procedure: 06/21/18 Pre-op diagnosis: metastatic colon cancer Post-op diagnosis: same Procedure: Date: 06/21/2018 Time: 1430 Indication: Hemodynamic monitoring/Intravenous access Resident: Sushma Ford Attending: Dr. Beckford A time-out was completed verifying correct patient, procedure, site, positioning, and special equipment if applicable. The patient was placed in a dependent position appropriate for central line placement based on the vein to be cannulated. The patients right neck was prepped and draped in sterile fashion. 1% Lidocaine was used to anesthetize the surrounding skin area. A triple lumen 9-Tristanian Cordis catheter was introduced into the the internal jugular using the Seldinger technique and under ultrasound guidance. The catheter was threaded smoothly over the guide wire and appropriate blood return was obtained. Each lumen of the catheter was evacuated of air and flushed with sterile saline. The catheter was then sutured in place to the skin and a sterile dressing applied. Perfusion to the extremity distal to the point of catheter insertion was checked and found to be adequate. Attending was present for the entire procedure. Estimated Blood Loss: 2mL The patient tolerated the procedure well and there were no complications. Anesthesia: local (3mL 1% lidocaine) Was there an blood bank assistant present: Yes Senior Civil Engineer: Cynthia Guerrero Estimated blood loss (cc): 2 Specimen: none Pathology: none sent Condition: critical Disposition: ICU
--- NOTE | 2018-06-21 19:29 | Pulmonology History & Physical ---
<Sushma Ford R - Last Filed: 06/21/18 17:28> Date of Encounter: 06/21/18 Time of Encounter: 15:15 Assessment and Plan (1) Hepatic encephalopathy syndrome Current visit: Yes Status: Acute Pt presents with AMS and colon cancer with mets to the liver. Abdominal distention with ascites concerning for abdominal compartment syndrome vs SBP. AST 598 ALT 108 Alk Phos 437 Ammonia 73 PT 20.5 INR 1.8 APTT 35.9 Lactulose and rifaximin will be started. 2L Ns in ED given. Additional 1L LR will be ordered with sodium bicarb. Central venous access achieved via right IJ. Blood cultures pending CT head, chest, abdomen pending - consider surgery consult pending results Palliative care consult (2) Acute kidney injury Current visit: Yes Status: Acute Pt has not made any urine today. Likely prerenal due to dehydration. Other differentials include hepatorenal syndrome. Cre 3.19 Pt received 2L NS in ED Will give another liter of LR with sodium bicarb On Levophed for BP Continue to trend Cre Nephro consult if pt continues to worsen and/or remains anuric Pt is not likely a dialysis candidate (3) Septic shock Current visit: Yes Status: Acute Pt BP 58/37 initially Pt has received 2L NS in ED An additional L of LR with sodium bicarb will be given Pt on Levophed Vanc and Zosyn for abx coverage, rocephin given in ED for SBP coverage Diagnostic paracentesis done in ED did not show SBP (4) Metastatic colon cancer to liver Current visit: Yes Status: Acute Port placed 1 week ago Was supposed to begin chemo yesterday but was unable to do so (5) Altered mental status Current visit: Yes Status: Acute Pt A&O x2 Secondary to hepatic encephalopathy vs septic shock WBC 22.7 ABG pH 7.3 CO2 38 HCO3 18 BE -8 Continue fluids and BP control IV abx for septic shock Qualifiers: Altered mental status type: unspecified Qualified Code(s): R41.82 - Altered mental status, unspecified (6) Elevated bilirubin Current visit: Yes Status: Acute Total bili 12.1 Direct bili 7.9 Indirect bili 4.2 Likely secondary to mets in liver Trend bili (7) Transaminitis Current visit: Yes Status: Acute AST 598 ALT 108 Alk phos 437 Likely due to mets to liver vs septic shock (shock liver) BP control with fluids and levophed Continue to trend (8) DVT prophylaxis Current visit: Yes Status: Acute SCIDs History of Present Illness Chief complaint: lethargic, confused HPI: Ms. Obrien is a 67 year old female with PMHx of colon cancer with metastasis to the liver who presents with increasing AMS over the past few days. She had a port placed last week and was supposed to begin chemo yesterday but was too sick to make her appointment. She has been jaundiced at home and had increasing abdominal pain and a distended abdomen. She has not been producing urine today. She is A&O to self and place but does not know the year. She can follow commands and answer some questions. consented to a central line in the ED. She has been hypotensive since arrival, has had 2L NS in ED and maxed on levophed. Past Med Surg Social Fam HX - Past Medical History Medical history: arthritis, cancer, coronary artery disease, GERD, hyperlipidemia, hypertension, myocardial infarction, other Additional medical history: Colon cancer with mets to liver and lung. 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 former Alcoholic Psychiatric history: no psych history - Past Surgical History Surgical History: hip replacement Additional surgical history: Tubal. Heart Cath-No Stents-2005 - Social History Smoking Status: Unknown if ever smoked Smokeless Tobacco Status: No Alcohol use: occasionally Drug use: none Medications and Allergies Aspirin [Ecotrin] 325 mg PO DAILY 05/31/18 [History] Etodolac [Lodine] 400 mg PO BID 05/31/18 [History] Omeprazole [PriLOSEC] 40 mg PO DAILY 05/31/18 [History] Pravastatin Sodium 10 mg PO HS 05/31/18 [History] Temazepam [Restoril] 30 mg PO HS 05/31/18 [History] Allopurinol [Zyloprim 300 MG] 300 mg PO DAILY #30 tablet 06/10/18 [Rx] Capecitabine [Xeloda] 2 tab PO BID #56 tablet 06/10/18 [Rx] OxyCODONE Immed Rel [Roxicodone 5 MG] 1 - 2 tab PO Q6HR PRN 30 Days #60 tablet 06/10/18 [Rx] Carvedilol 12.5 mg PO BID 06/13/18 [History] Morphine Sulfate SR (12 HR) [MS Contin] 1 tab PO BID PRN 06/21/18 [History] Allergy/AdvReac Type Severity Reaction Status Date / Time atorvastatin AdvReac Rash Verified 06/13/18 13:29 celecoxib [From Celebrex] AdvReac See Verified 05/26/18 12:13 Comments lisinopril AdvReac Cough Verified 06/13/18 13:29 metoprolol [From Lopressor] AdvReac See Verified 05/26/18 12:14 Comments rofecoxib [From Vioxx] AdvReac See Verified 06/13/18 13:29 Comments ROS unobtainable: due to mental status All Systems: The remainder of the systems were reviewed and are negative - Constitutional Constitutional: fatigue, lethargy, other (confusion) - EENT Nose, mouth and throat: dry mouth - Respiratory Respiratory: dyspnea - Gastrointestinal Gastrointestinal: abdominal pain - Integumentary Integumentary: jaundice Physical Examination Vital Signs: Vital Signs, Last 4 Hours Pulse Resp BP Pulse Ox 06/21/18 14:36 79 16 87/42 98 06/21/18 14:20 62 14 90/51 99 06/21/18 14:15 68 16 94/54 99 06/21/18 14:00 56 14 93/38 97 06/21/18 13:45 64 14 86/52 99 06/21/18 13:30 66 14 83/57 98 06/21/18 13:00 79 16 83/73 97 06/21/18 12:30 77 16 84/54 100 06/21/18 12:15 72 14 93/48 98 06/21/18 12:00 70 14 91/59 97 06/21/18 11:30 72 33 58/37 97 General appearance: lethargic, other (A&Ox2) Eyes: icteric ENT: oropharynx dry Neck: supple, no JVD Effort: mildly labored Auscultation: bilateral: clear Cardiovascular: regular rate and rhythm Gastrointestinal: normoactive bowel sounds, tender, other (distended) Integumentary: other (jaundice to below the level of the nipple) Extremities: no cyanosis, pulses normal, edema (4+ pitting edema to tibial tuberosity) Musculoskeletal: no deformities unable to assess due to mental status, other (pupils 2mm, reactive to light) Results - Laboratory Findings CBC and BMP: 06/21/18 11:28 06/21/18 11:28 ABG ABG pH 7.30 pH Units (7.32-7.45) L 06/21/18 11:22 ABG pCO2 38 mmHg (35-45) 06/21/18 11:22 ABG pO2 130 mmHg (85-104) H 06/21/18 11:22 ABG O2 Saturation 99 % (95-98) H 06/21/18 11:22 PT/INR, D-dimer PT 20.5 Seconds (9.4-12.1) H 06/21/18 11:28 Abnormal lab findings: Abnormal lab results WBC 22.7 K/mcL (4.3-11.1) H 06/21/18 11:28 Hgb 10.5 g/dL (11.5-15.4) L 06/21/18 11:28 MCH 25.1 pg (28.0-33.3) L 06/21/18 11: MCHC 29.3 g/dL (31.6-35.5) L 06/21/18 11:28 RDW 30.2 % (11.5-14.5) H 06/21/18 11:28 Band Neutrophils % 18.0 % (0-4) H 06/21/18 11:28 Neutrophils # 22.3 K/mcL (1.6-8.9) H 06/21/18 11:28 Lymphocytes # 0.5 K/mcL (0.6-4.6) L 06/21/18 11:28 Poikilocytosis 1+ (Not Present) A 06/21/18 11:28 Anisocytosis 2+ (Not Present) A 06/21/18 11:28 PT 20.5 Seconds (9.4-12.1) H 06/21/18 11:28 ABG pH 7.30 pH Units (7.32-7.45) L 06/21/18 11:22 ABG pO2 130 mmHg (85-104) H 06/21/18 11:22 ABG HCO3 18 mEq/L (21-27) L 06/21/18 11:22 ABG O2 Saturation 99 % (95-98) H 06/21/18 11:22 ABG Base Excess -8 mEq/L (-2 to 3) L 06/21/18 11:22 Sodium 135 mEq/L (136-145) L 06/21/18 11:28 Potassium 5.5 mEq/L (3.5-5.1) H 06/21/18 11:28 Carbon Dioxide 18 mEq/L (23-29) L 06/21/18 11:28 BUN 44 mg/dL (8-23) H 06/21/18 11:28 Creatinine 3.19 mg/dL (0.60-1.20) H 06/21/18 11:28 Est GFR ( Amer) 17 (> 60) L 06/21/18 11:28 Est GFR (Non-Af Amer) 14 (> 60) L 06/21/18 11:28 Glucose 66 mg/dL (70-105) L 06/21/18 11:28 Calcium 6.9 mg/dL (8.6-10.3) L 06/21/18 11:28 Venous Ioniz Calcium 0.85 mmol/L (1.15-1.35) L 06/21/18 12:10 Phosphorus 7.6 mg/dL (2.7-4.5) H 06/21/18 11:28 Total Bilirubin 12.1 mg/dL (0.3-1.0) H 06/21/18 11:28 Direct Bilirubin 7.9 mg/dL (0.0-0.2) H 06/21/18 11:28 Indirect Bilirubin 4.2 mg/dL (0.0-1.2) H 06/21/18 11:28 AST 598 Units/L (13-39) H 06/21/18 11:28 ALT 108 Units/L (7-52) H 06/21/18 11:28 Alkaline Phosphatase 437 Units/L (34-104) H 06/21/18 11:28 Ammonia 73 mcmol/L (16-53) H 06/21/18 11:28 Serum Total Protein 5.0 g/dL (6.4-8.9) L 06/21/18 11:28 Albumin 2.3 g/dL (3.5-5.7) L 06/21/18 11:28 Albumin/Globulin Ratio 0.9 (1.1-2.2) L 06/21/18 11:28 Periton Tot Nuc Cells > 29641 TNC/mcL (0-300) H 06/21/18 13:47 <Francisco Veloz S - Last Filed: 06/21/18 21:07> History of Present Illness HPI: Ms. Obrien is a 67 year old female All Systems: The remainder of the systems were reviewed and are negative Physical Examination Vital Signs: Vital Signs, Last 4 Hours Temp Pulse Resp BP Pulse Ox 06/21/18 20:00 96 F L 79 20 102/66 93 06/21/18 19:00 79 22 100/66 93 06/21/18 18:44 78 18 106/68 94 06/21/18 17:44 97.4 F L 79 18 92/54 94 Results - Laboratory Findings CBC and BMP: 06/21/18 11:28 06/21/18 11:28 ABG ABG pH 7.25 pH Units (7.32-7.45) L 06/21/18 20:23 ABG pCO2 38 mmHg (35-45) 06/21/18 20:23 ABG pO2 83 mmHg (85-104) L 06/21/18 20:23 ABG O2 Saturation 94 % (95-98) L 06/21/18 20:23 PT/INR, D-dimer PT 20.5 Seconds (9.4-12.1) H 06/21/18 11:28 Abnormal lab findings: Abnormal lab results WBC 22.7 K/mcL (4.3-11.1) H 06/21/18 11:28 Hgb 10.5 g/dL (11.5-15.4) L 06/21/18 11:28 MCH 25.1 pg (28.0-33.3) L 06/21/18 11:28 MCHC 29.3 g/dL (31.6-35.5) L 06/21/18 11:28 RDW 30.2 % (11.5-14.5) H 06/21/18 11:28 Band Neutrophils % 18.0 % (0-4) H 06/21/18 11:28 Neutrophils # 22.3 K/mcL (1.6-8.9) H 06/21/18 11:28 Lymphocytes # 0.5 K/mcL (0.6-4.6) L 06/21/18 11:28 Poikilocytosis 1+ (Not Present) A 06/21/18 11:28 Anisocytosis 2+ (Not Present) A 06/21/18 11:28 PT 20.5 Seconds (9.4-12.1) H 06/21/18 11:28 ABG pH 7.25 pH Units (7.32-7.45) L 06/21/18 20:23 ABG pO2 83 mmHg (85-104) L 06/21/18 20:23 ABG HCO3 17 mEq/L (21-27) L 06/21/18 20: ABG Total CO2 18 mEq/L (20-26) L 06/21/18 20:23 ABG O2 Saturation 94 % (95-98) L 06/21/18 20:23 ABG Base Excess -10 mEq/L (-2 to 3) L 06/21/18 20: Sodium 135 mEq/L (136-145) L 06/21/18 11:28 Potassium 5.5 mEq/L (3.5-5.1) H 06/21/18 11:28 Carbon Dioxide 18 mEq/L (23-29) L 06/21/18 11:28 BUN 44 mg/dL (8-23) H 06/21/18 11:28 Creatinine 3.19 mg/dL (0.60-1.20) H 06/21/18 11:28 Est GFR ( Amer) 17 (> 60) L 06/21/18 11:28 Est GFR (Non-Af Amer) 14 (> 60) L 06/21/18 11:28 Glucose 66 mg/dL (70-105) L 06/21/18 11:28 POC Glucose 119 mg/dL (70-99) H 06/21/18 16:34 Calcium 6.9 mg/dL (8.6-10.3) L 06/21/18 11:28 Venous Ioniz Calcium 0.85 mmol/L (1.15-1.35) L 06/21/18 12:10 Phosphorus 7.6 mg/dL (2.7-4.5) H 06/21/18 11:28 Total Bilirubin 12.1 mg/dL (0.3-1.0) H 06/21/18 11:28 Direct Bilirubin 7.9 mg/dL (0.0-0.2) H 06/21/18 11:28 Indirect Bilirubin 4.2 mg/dL (0.0-1.2) H 06/21/18 11:28 AST 598 Units/L (13-39) H 06/21/18 11:28 ALT 108 Units/L (7-52) H 06/21/18 11:28 Alkaline Phosphatase 437 Units/L (34-104) H 06/21/18 11:28 Ammonia 73 mcmol/L (16-53) H 06/21/18 11:28 Serum Total Protein 5.0 g/dL (6.4-8.9) L 06/21/18 11:28 Albumin 2.3 g/dL (3.5-5.7) L 06/21/18 11:28 Albumin/Globulin Ratio 0.9 (1.1-2.2) L 06/21/18 11:28 Periton Tot Nuc Cells > 59850 TNC/mcL (0-300) H 06/21/18 13:47 Acetaminophen < 10 mcg/mL (10-20) L 06/21/18 15:05 - Attending Attestation I saw and evaluated this patient and my medical decision-making was reviewed with the Resident Physician. I agree with the documented findings, disposition and treatment plan as described except to the extent set forth below. We independently had [id number] contact with the patient I spent 45 minutes of Critical Care time with this patient. It involved decision making of high complexity to assess, manipulate, and support vital organ system failure and/or to prevent further life threatening deterioration of the patient's condition. The time involved in the performance of separately reportable procedures was not counted toward critical care time. Patient seen and examined at bedside Labs, radiology, chart personally reviewed. Management was reviewed during multidisciplinary critical care rounds. RISK AND INSURANCE CONSULTANT: Patient has acute metabolic encephalopathy due to hepatic failure secondary to extensive metastatic liver disease secondary to colon Cancer. Pulm: Patient has acceptable oxygenation and ventilation has some pulmonary vascular congestion in CT chest with extensive bilateral cannonball lung metastasis from colon. Since patient has extensive tumor burden and with liver failure she will be a poor candidate for intubation and mechanical ventilation counseled family if she does not recover from kidney injury after fluid resuscitation and septic shock management patient should be made comfortable. Cards: Patient is in septic shock to cover with broad-spectrum antibiotics most likely source is from abdomen. Patient is on vasopressors now to keep map above 65. FEN-GI: Patient has huge hepatomegaly with extensive metastatic liver disease with acute liver failure. Patient has poor prognosis ascites was tapped and sent for culture. Renal: Patient has acute kidney injury secondary to liver failure if the patient has prerenal we will resuscitate if it is ATN or hepatorenal patient will have poor prognosis and in the light of her liver failure patient will not be a candidate for dialysis if the kidney does not recover adequately family that patient should be comfortable.. ID: To cover with broad-spectrum antibiotics Heme/Onc: Extensive metastatic adenocarcinoma of colon With extensive tumor burden of the liver and lungs. Endo: Glucose Monitored Integ/MSK: Skin Care per routine ICU Nursing Protocol to prevent ulcers. Lines: All lines examined without evidence of infection : Dispo: Critically ill CODE: Full Code for now had a lengthy discussion with the showed him the latest CT abdomen and CT chest imaging and explained to him to about the extent of hepatic metastatic disease with liver failure which causing her kidney injury intubating her and doing dialysis will not help her much patient is contemplating to make her DNR CCA DNI will give him more time.
--- NOTE | 2018-06-21 19:32 | Palliative - Consult Note ---
Date of Encounter: 06/21/18 Time of Encounter: 15:45 - Assessment and Plan (1) Acute kidney injury Current Visit: Yes Status: Acute Assessment and plan: Patient with significant decline in renal function since labs 2 weeks ago. Has began treatment for sepsis. (2) Elevated bilirubin Current Visit: Yes Status: Acute (3) Metastatic colon cancer to liver Current Visit: Yes Status: Acute Assessment and plan: Has not started chemotherapy. Appears to be septic, possibly related to peritonitis. (4) Septic shock Current Visit: Yes Status: Acute Assessment and plan: Has received Rocephin,Vancomycin, Zosyn, fluid resuscitation and vasopressor in ED. Cultures pending. IR obtained abdominal fluid for culture (5) Goals of care, counseling/discussion Current Visit: Yes Status: Acute Assessment and plan: Met with and niece in ED. very emotionally distraught, stated "we just got this diagnosis a few weeks ago, and she hasn't even started treatment yet". 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 Patient has one son, who is currently in [place] and patient's has attempted to reach him, and believes he will try and get home. understands that she is critically ill, and may not survive. At this point, he would like all measures taken to see if she responds to treatment. He states that they have never discussed her wishes, and he is not sure what she would want or not want done. At this time, he would consent to intubation if needed. Her code status remains full at this time. Palliative will continue to follow clinical course. Palliative-CN HPI - Data of Consult Requesting Physician: Francisco Veloz MD Primary Care Provider: Sharon Mata - Consult Narrative History of present illness: Ms. Obrien is a 67 year old female who was recently diagnosed with metastatic adenocarcinoma, likely colon in origin, with extensive liver involvement. She had increasing confusion and weakness over the past week. She had port placed last week and was supposed to start chemotherapy yesterday, however, stated she was too ill to go. Dr. Schultz has been working with patient at cancer center. called EMS when he was unable to get her to bed this am. I have seen patient in ED. Appears to be septic with multi-organ failure. Leukocytosis with WBC greater than 22. Lactic acid 1.9. Creatinine 3.19, GFR 17. . Liver enzymes elevated and bilirubin of 12. Extremely hypotensive and Vasopressor has been initiated in the ED, and central line was placed. She is currently on Oxygen by mask, appears lethargic. She has other pertinent history of CAD, TN, GERD, HTN, as well as the recently diagnosed cancer. Upon my arrival, pt can awaken when name called, knows she is at hospital, denies any pain, however, speech is slurred and she falls back to sleep quickly. B/P 78/30 at time of my visit. and niece are at bedside. states that son is currently in [place]. He has spoken with ED physicians as well as Dr. Veloz prior to my visit. CC: Francisco Veloz MD - Time Spent with Patient Time: Total time spent is greater than 50% in coordination of care (as documented) at patient's floor/unit and/or counseling patient: 25 - 35 minutes Past Med Surg Social Fam HX - Past Medical History Medical history: arthritis, cancer, coronary artery disease, GERD, hyperlipidemia, hypertension, myocardial infarction, other Additional medical history: Colon cancer with mets to liver and lung. 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 former Alcoholic Psychiatric history: no psych history - Past Surgical History Surgical History: hip replacement Additional surgical history: Tubal. Heart Cath-No Stents-2006 - Social History Smoking Status: Unknown if ever smoked Smokeless Tobacco Status: No Alcohol use: occasionally Drug use: none Medications and Allergies Aspirin [Ecotrin] 325 mg PO DAILY 05/31/18 [History] Etodolac [Lodine] 400 mg PO BID 05/31/18 [History] Omeprazole [PriLOSEC] 40 mg PO DAILY 05/31/18 [History] Pravastatin Sodium 10 mg PO HS 05/31/18 [History] Temazepam [Restoril] 30 mg PO HS 05/31/18 [History] Allopurinol [Zyloprim 300 MG] 300 mg PO DAILY #30 tablet 06/10/18 [Rx] Capecitabine [Xeloda] 2 tab PO BID #56 tablet 06/10/18 [Rx] OxyCODONE Immed Rel [Roxicodone 5 MG] 1 - 2 tab PO Q6HR PRN 30 Days #60 tablet 1 [Rx] Carvedilol 12.5 mg PO BID 06/13/18 [History] Morphine Sulfate SR (12 HR) [MS Contin] 1 tab PO BID PRN 06/21/18 [History] Allergy/AdvReac Type Severity Reaction Status Date / Time atorvastatin AdvReac Rash Verified 06/13/18 13:29 celecoxib [From Celebrex] AdvReac See Verified 05/26/18 12:13 Comments lisinopril AdvReac Cough Verified 06/13/18 13:29 metoprolol [From Lopressor] AdvReac See Verified 05/26/18 12:14 Comments rofecoxib [From Vioxx] AdvReac See Verified 06/13/18 13:29 Comments ROS unobtainable: due to mental status Palliative Care-Exam - Constitutional Vitals: Temp Pulse Resp BP Pulse Ox 95.9 F L 79 14 91/52 98 06/21/18 11:06 06/21/18 14:36 06/21/18 15:20 06/21/18 15:20 06/21/18 14:36 General appearance: Present: no acute distress - Head Head Exam: Present: normal inspection, normocephalic - Eye Eye exam: Present: scleral icterus - Respiratory Respiratory exam: Present: decreased breath sounds - Cardiovascular Cardiovascular exam: Present: +S1, +S2 - GI/Abdominal Exam GI/Abdominal exam: Present: diminished bowel sounds, distended - Catheter Type: Urethral (Limon) - Extremities Exam Additional comments: 3+ edema to bilateral lower extremities, feet bilateral cool to touch. - Neurological Exam Additional comments: Patient is lethargic, speech slurred. Does know she is at hospital. Unable to participate in much discussion. Can follow simple commands to squeeze hands, wiggle toes, etc. - Skin Additional comments: Jaundiced Internal Medicine - CN: Reslt - Labs CBC & Chem 7: 06/21/18 11:28 06/21/18 11:28 Labs: Short CBC 06/21/18 Range/Units 11:28 WBC 22.7 H (4.3-11.1) K/mcL Hgb 10.5 L (11.5-15.4) g/dL Hct 35.8 (35.3-44.9) % Plt Count 357 (140-400) K/mcL Neutrophils # 22.3 H (1.6-8.9) K/mcL BMP 06/21/18 11:28 Sodium 135 L Potassium 5.5 H Chloride 100 Carbon Dioxide 18 L BUN 44 H Creatinine 3.19 H Glucose 66 L Calcium 6.9 L Cardiac Enzymes 06/21/18 Range/Units 11:28 Troponin I 0.03 (< 0.04) ng/mL Liver Function 06/21/18 Range/Units 11:28 Total Bilirubin 12.1 H (0.3-1.0) mg/dL Direct Bilirubin 7.9 H (0.0-0.2) mg/dL AST 598 H (13-39) Units/L ALT 108 H (7-52) Units/L Alkaline Phosphatase 437 H (34-104) Units/L Albumin 2.3 L (3.5-5.7) g/dL - ABG Interpretation ABG results: ABG ABG pH 7.30 pH Units (7.32-7.45) L 06/21/18 11:22 ABG pCO2 38 mmHg (35-45) 06/21/18 11:22 ABG pO2 130 mmHg (85-104) H 06/21/18 11:22 ABG O2 Saturation 99 % (95-98) H 06/21/18 11:22 PT/INR, D-dimer PT 20.5 Seconds (9.4-12.1) H 06/21/18 11:28 - Impressions Impressions Chest X-Ray 06/21/18 11:15 IMPRESSION: 1. Lower lung volumes, otherwise, no acute cardiopulmonary disease. D/ / 06/21/2018 12:01:00 Yasmin Springer MD / Dulce Ross Interpreting Provider: Yasmin Springer MD Consult Discharge Plan - Plan Referrals: Sharon Mata MD [Primary Care Provider] - Palliative Quality Palliative Quality: Screen for Code Status: Yes, Screen for Goals of Care: Yes, Screen for Pain: Yes, If Pain Regimen Started, Initiate Bowel Regimen: NA, Screen for Nausea/Vomitting: Yes Code Status: 06/21/18 14:26 Resuscitation Status: Active [RES] Stat Comment: Resuscitation Status: Full Code
[2018-06-21 20:27] LABS: ABG Base Excess -10 mEq/L (-2 to 3); ABG HCO3 17 mEq/L (21-27); ABG Oxygen Saturation 94 % (95-98); ABG PCO2 38 mmHg (35-45); ABG PH 7.25 pH Units (7.32-7.45); ABG PO2 83 mmHg (85-104); ABG TCO2 18 mEq/L (20-26)
--- NOTE | 2018-06-21 21:29 | Event Note ---
Date of Encounter: 06/21/18 Time of Encounter: 21:23 Was contacted by nurse at the request of Dr. Veloz and patient's . Patients prognosis is poor with history of colon cancer with metastatic disease, septic shock and renal failure. The appears to understand her poor prognosis and from his discussion with his , she does not want to be intubated or any other aggressive resuscitative efforts aside from medical management at this time. I also discussed the case with Dr. Veloz and informed him of the discussion at bedside with and patient and decision to change code status. I will transition the patient to DNR comfort care DNI.
[2018-06-21 22:11] LABS: Albumin 2.2 g/dL (3.5-5.7); Albumin/Globulin Ratio 0.9 (1.1-2.2); Bilirubin,Direct 6.8 mg/dL (0.0-0.2); Bilirubin,Indirect 4.5 mg/dL (0.0-1.2); Bilirubin,Total 11.3 mg/dL (0.3-1.0); Calcium 6.4 mg/dL (8.6-10.3); Globulin 2.5 g/dL (2.4-3.5); Potassium 5.1 mEq/L (3.5-5.1); Total Protein 4.7 g/dL (6.4-8.9)
[2018-06-21] MEDS: Norepinephrine 8 MG in D5% in Water 500 ML IVC SCH (22:16)
[2018-06-21] MEDS: Vasopressin 40 UNIT in D5% in Water 100 ML IV SCH (23:39)
[2018-06-22] MEDS ORDERED: Piperacillin/Tazobactam 3.375 GM in 0.9 % Sodium Chloride Mini Bag 100 ML IVPB SCH
[2018-06-22] MEDS: D5% in 0.9% NACL 1,000 ML IVC SCH (00:33)
[2018-06-22] MEDS: Norepinephrine 8 MG in D5% in Water 500 ML IVC SCH ×4 (02:49→21:33)
[2018-06-22 03:59] LABS: Amphetamine Screen,Urine Negative ng/mL (Cutoff=1000); Barbiturate Screen,Urine Negative ng/mL (Cutoff=200); Benzodiazepines Screen,Urine Positive ng/mL (Cutoff=200); Cannabinoid Screen,Urine Negative ng/mL (Cutoff = 50); Cocaine Screen,Urine Negative ng/mL (Cutoff= 300); Opiate Screen,Urine Positive ng/mL (Cutoff=300); Phencyclidine Screen,Urine Negative ng/mL (Cutoff=25)
[2018-06-22 04:15] LABS: Clarity,Urine Turbid (Clear); Color,Urine Brown (Yellow)
[2018-06-22 04:16] LABS: Bacteria,Urine Moderate per hpf (None-Few); RBC,Urine 30-50 per hpf (0-3); Squamous Epithelial Cell,Urine Many per lpf (None-Few); WBC,Urine 15-30 per hpf (0-3)
[2018-06-22 04:17] LABS: Amorphous Sediment,Urine Many (Few); Transitional Epi Cells,Urine Few per hpf (None-Few)
[2018-06-22 04:32] LABS: Hematocrit 35.8 % (35.3-44.9); Hemoglobin 10.4 g/dL (11.5-15.4); Mean Corpuscular HGB Conc 29.1 g/dL (31.6-35.5); Mean Corpuscular Hemoglobin 24.8 pg (28.0-33.3); Mean Corpuscular Volume 85.4 fL (83.0-100.0); Mean Platelet Volume 9.3 fL (9.4-12.4); Platelet Count 396 K/mcL (140-400); Red Blood Count 4.19 M/mcL (3.82-4.97); Red Cell Distribution Width 28.9 % (11.5-14.5)
[2018-06-22 04:38] LABS: VBG Ionized Calcium 0.78 mmol/L (1.15-1.35)
[2018-06-22 04:49] LABS: Albumin/Globulin Ratio 0.8 (1.1-2.2); Bilirubin,Total 11.7 mg/dL (0.3-1.0); Calcium 6.1 mg/dL (8.6-10.3); Globulin 2.5 g/dL (2.4-3.5); Magnesium 1.9 mg/dL (1.6-2.6); Phosphorous 6.7 mg/dL (2.7-4.5); Potassium 4.6 mEq/L (3.5-5.1); Total Protein 4.5 g/dL (6.4-8.9)
[2018-06-22 04:59] LABS: Acanthocytes 1+ (Not Present); Lymphocytes # 0.6 K/mcL (0.6-4.6); Microcytosis Present (Not Present); Neutrophils # 28.3 K/mcL (1.6-8.9); Platelet Estimate Normal (Normal)
[2018-06-22] MEDS ORDERED: 0.9 % Sodium Chloride 500 ML IVC ONE ×2 (07:35→07:36)
[2018-06-22] MEDS ORDERED: Calcium Gluconate 2,000 MG in 0.9 % Sodium Chloride 100 ML IVPB ONE (07:41)
[2018-06-22] MEDS ORDERED: Lactulose 200 GM, Sodium Chloride IRRigation 700 ML RC ONE (07:42)
--- NOTE | 2018-06-22 07:53 | Pulmonology Progress Note ---
Date of Encounter: 06/22/18 Time of Encounter: 07:30 Assessment and Plan (1) Septic shock Current Visit: Yes Status: Acute Patient septic shock secondary to intra-abdominal with shock situations also complicated by her hepatic failure thought it was SBP no other intra-abdominal source per CT abdomen. To continue with broad-spectrum antibiotics. To continue Levophed (2) Acute kidney injury Current Visit: Yes Status: Acute Patient kidney function slowly recovering with fluid resuscitation and septic shock management will continue to trend serum creatinine also has a component of ATN not sure how fast her kidney function is going to recover if not getting better we will consult nephrology the patient will have poor prognosis (3) Abdominal pain Current Visit: Yes Status: Acute due to metastatic liver disease patient has huge hepatomegaly The capsule stretch pain may be the main etiology for this abdominal pain. Qualifiers: Abdominal location: generalized Qualified Code(s): R10.84 - Generalized abdominal pain (4) Metastatic colon cancer to liver Current Visit: Yes Status: Acute Patient has stage IV metastatic colon cancer with huge hepatomegaly, causing hepatocellular failure (5) Goals of care, counseling/discussion Current Visit: Yes Status: Acute Patient and changed her to goals of care to DNRCCA -DNI Objective PUL Vital signs: Last Vital Signs Temp 96.8 F L 06/22/18 07:08 Pulse 75 06/22/18 05:00 Resp 20 06/22/18 05:00 BP 105/73 06/22/18 05:00 Pulse Ox 93 06/22/18 05:00 Results - Laboratory Findings CBC and BMP: 06/22/18 04:04 06/22/18 04:04 ABG ABG pH 7.25 pH Units (7.32-7.45) L 06/21/18 20:23 ABG pCO2 38 mmHg (35-45) 06/21/18 20:23 ABG pO2 83 mmHg (85-104) L 06/21/18 20:23 ABG O2 Saturation 94 % (95-98) L 06/21/18 20:23 PT/INR, D-dimer PT 20.5 Seconds (9.4-12.1) H 06/21/18 11:28 Abnormal lab findings: Abnormal lab results WBC 28.9 K/mcL (4.3-11.1) H 06/22/18 04:04 Hgb 10.4 g/dL (11.5-15.4) L 06/22/18 04:04 MCH 24.8 pg (28.0-33.3) L 06/22/18 04:04 MCHC 29.1 g/dL (31.6-35.5) L 06/22/18 04:04 RDW 28.9 % (11.5-14.5) H 06/22/18 04:04 MPV 9.3 fL (9.4-12.4) L 06/22/18 04:04 Band Neutrophils % 10.0 % (0-4) H 06/22/18 04:04 Neutrophils # 28.3 K/mcL (1.6-8.9) H 06/22/18 04:04 Poikilocytosis 1+ (Not Present) A 06/21/18 11:28 Anisocytosis 2+ (Not Present) A 06/21/18 11:28 Microcytosis Present (Not Present) A 06/22/18 04:04 Acanthocytes (Spur) 1+ (Not Present) A 06/22/18 04:04 PT 20.5 Seconds (9.4-12.1) H 06/21/18 11:28 ABG pH 7.25 pH Units (7.32-7.45) L 06/21/18 20:23 ABG pO2 83 mmHg (85-104) L 06/21/18 20:23 ABG HCO3 17 mEq/L (21-27) L 06/21/18 20:23 ABG Total CO2 18 mEq/L (20-26) L 06/21/18 20:23 ABG O2 Saturation 94 % (95-98) L 06/21/18 20:23 ABG Base Excess -10 mEq/L (-2 to 3) L 06/21/18 20:23 Sodium 131 mEq/L (136-145) L 06/22/18 04:04 Chloride 95 mEq/L (98-107) L 06/22/18 04:04 BUN 42 mg/dL (8-23) H 06/22/18 04:04 Creatinine 2.83 mg/dL (0.60-1.20) H 06/22/18 04:04 Est GFR ( Amer) 20 (> 60) L 06/22/18 04:04 Est GFR (Non-Af Amer) 17 (> 60) L 06/22/18 04:04 Glucose 427 mg/dL (70-105) H 06/22/18 04:04 POC Glucose 283 mg/dL (70-99) H 06/21/18 23:21 Calculated Osmolality 301 (280-300) H 06/22/18 04:04 Calcium 6.1 mg/dL (8.6-10.3) L 06/22/18 04:04 Venous Ioniz Calcium 0.78 mmol/L (1.15-1.35) L 06/22/18 04:36 Phosphorus 6.7 mg/dL (2.7-4.5) H 06/22/18 04:04 Total Bilirubin 11.7 mg/dL (0.3-1.0) H 06/22/18 04:04 Direct Bilirubin 6.8 mg/dL (0.0-0.2) H 06/21/18 21:27 Indirect Bilirubin 4.5 mg/dL (0.0-1.2) H 06/21/18 21:27 AST 346 Units/L (13-39) H 06/22/18 04:04 ALT 86 Units/L (7-52) H 06/22/18 04:04 Alkaline Phosphatase 365 Units/L (34-104) H 06/22/18 04:04 Ammonia 73 mcmol/L (16-53) H 06/21/18 11:28 Serum Total Protein 4.5 g/dL (6.4-8.9) L 06/22/18 04:04 Albumin 2.0 g/dL (3.5-5.7) L 06/22/18 04:04 Albumin/Globulin Ratio 0.8 (1.1-2.2) L 06/22/18 04:04 Ur Specimen Adequacy See below A 06/22/18 02:15 Urine Clarity Turbid (Clear) A 06/22/18 02:15 Urine Microscopic RBC 30-50 per hpf (0-3) H 06/22/18 02:15 Urine Microscopic WBC 15-30 per hpf (0-3) H 06/22/18 02:15 Ur Squamous Epith Cells Many per lpf (None-Few) H 06/22/18 02:15 Amorphous Sediment Many (Few) H 06/22/18 02:15 Urine Bacteria Moderate per hpf (None-Few) H 06/22/18 02:15 Periton Tot Nuc Cells > 92713 TNC/mcL (0-300) H 06/21/18 13:47 Urine Opiates Screen Positive ng/mL (Tydxlw=978) H 06/22/18 02:15 Acetaminophen < 10 mcg/mL (10-20) L 06/21/18 15:05 U Benzodiazepines Scrn Positive ng/mL (Tkzobx=840) H 06/22/18 02:15 - Microbiology Findings Microbiology Findings: Microbiology, Last 48 Hours 06/21/18 11:28 Blood Culture - Preliminary Port System Culture is incubating and being continuously monitored for growth. Final report to follow. 06/21/18 11:55 Blood Culture - Preliminary Peripheral Venipuncture Culture is incubating and being continuously monitored for growth. Final report to follow. - Clinical Findings Intake & Output: Intake & Output 06/21/18 06/21/18 06/22/18 15:59 23:59 07:59 Intake Total 1999 2612 / 2612 1881 / 1881 Output Total 0 / 0 60 / 60 Balance 1999 2612 / 2612 1821 / 1821 Weight 89.448 kg 86.8 kg Consult Discharge Plan - Plan Referrals: Sharon Mata MD [Primary Care Provider] -
[2018-06-22] MEDS: Piperacillin/Tazobactam 3.375 GM in 0.9 % Sodium Chloride Mini Bag 100 ML IVPB SCH ×2 (08:26→20:22)
[2018-06-22] MEDS ORDERED: Saliva Stimulant 100ml BOTTLE PO PRN (09:59)
[2018-06-22] MEDS ORDERED: Lactulose Oral Soln 20 GM/30 ML UDC PO ONE (12:38)
--- NOTE | 2018-06-22 14:52 | Palliative Progress Note ---
Date of Encounter: 06/22/18 Time of Encounter: 14:00 - Assessment and plan (1) Abdominal pain Current Visit: Yes Status: Acute Assessment and plan: Patient with metastatic colon cancer to liver. Patient with ascites and distended tender abdomen. S/P paracentesis with removal of 60cc. States abdominal pain is 4/10 and ache and difficulty getting comfortable. Will add low dose morphine PRN for comfort. Qualifiers: Abdominal location: generalized Qualified Code(s): R10.84 - Generalized abdominal pain (2) Goals of care, counseling/discussion Current Visit: Yes Status: Acute Assessment and plan: Patient Tom went home to rest. Patient alert and desires no intubation just medical interventions but no advanced respiratory intubation. Patient with colon cancer with mets to liver. Niece at bedside. Patient with overall poor prognosis. Leukocytosis and sepsis. Patient on Levophed. Will approach family tomorrow once returns and discuss patients POC. Patient and family did decide on DNRCC - A, DNI status. Will continue to follow. (3) Septic shock Current Visit: Yes Status: Acute Assessment and plan: Receiving Levophed. Medical care per Senior Clinical Consultant. (4) Metastatic colon cancer to liver Current Visit: Yes Status: Acute - Time Spent With Patient Total time spent is greater than 50% in coordination of care (as documented) at patient's floor/unit and/or counseling patient: - Subjective Interval history: Patient in ICU. Niece at bedside. Tom went home to rest and freshen- up. Patient on high flow O2. Recently diagnosed with colon cancer and now with mets to liver. Patient with severe jaundice. Patient able to answer questions. - Constitutional Vitals: Abnormal lab results WBC 28.9 K/mcL (4.3-11.1) H 06/22/18 04:04 Hgb 10.4 g/dL (11.5-15.4) L 06/22/18 04:04 MCH 24.8 pg (28.0-33.3) L 06/22/18 04:04 MCHC 29.1 g/dL (31.6-35.5) L 06/22/18 04:04 RDW 28.9 % (11.5-14.5) H 06/22/18 04:04 MPV 9.3 fL (9.4-12.4) L 06/22/18 04:04 Band Neutrophils % 10.0 % (0-4) H 06/22/18 04:04 Neutrophils # 28.3 K/mcL (1.6-8.9) H 06/22/18 04:04 Poikilocytosis 1+ (Not Present) A 06/21/18 11:28 Anisocytosis 2+ (Not Present) A 06/21/18 11:28 Microcytosis Present (Not Present) A 06/22/18 04:04 Acanthocytes (Spur) 1+ (Not Present) A 06/22/18 04:04 PT 20.5 Seconds (9.4-12.1) H 06/21/18 11:28 ABG pH 7.25 pH Units (7.32-7.45) L 06/21/18 20:23 ABG pO2 83 mmHg (85-104) L 06/21/18 20:23 ABG HCO3 17 mEq/L (21-27) L 06/21/18 20:23 ABG Total CO2 18 mEq/L (20-26) L 06/21/18 20:23 ABG O2 Saturation 94 % (95-98) L 06/21/18 20:23 ABG Base Excess -10 mEq/L (-2 to 3) L 06/21/18 20:23 Sodium 131 mEq/L (136-145) L 06/22/18 04:04 Chloride 95 mEq/L (98-107) L 06/22/18 04:04 BUN 42 mg/dL (8-23) H 06/22/18 04:04 Creatinine 2.83 mg/dL (0.60-1.20) H 06/22/18 04:04 Est GFR ( Amer) 20 (> 60) L 06/22/18 04:04 Est GFR (Non-Af Amer) 17 (> 60) L 06/22/18 04:04 Glucose 427 mg/dL (70-105) H 06/22/18 04:04 POC Glucose 283 mg/dL (70-99) H 06/21/18 23:21 Calculated Osmolality 301 (280-300) H 06/22/18 04:04 Calcium 6.1 mg/dL (8.6-10.3) L 06/22/18 04:04 Venous Ioniz Calcium 0.78 mmol/L (1.15-1.35) L 06/22/18 04:36 Phosphorus 6.7 mg/dL (2.7-4.5) H 06/22/18 04:04 Total Bilirubin 11.7 mg/dL (0.3-1.0) H 06/22/18 04:04 Direct Bilirubin 6.8 mg/dL (0.0-0.2) H 06/21/18 21:27 Indirect Bilirubin 4.5 mg/dL (0.0-1.2) H 06/21/18 21:27 AST 346 Units/L (13-39) H 06/22/18 04:04 ALT 86 Units/L (7-52) H 06/22/18 04:04 Alkaline Phosphatase 365 Units/L (34-104) H 06/22/18 04:04 Ammonia 66 mcmol/L (16-53) H 06/22/18 09:50 Serum Total Protein 4.5 g/dL (6.4-8.9) L 06/22/18 04:04 Albumin 2.0 g/dL (3.5-5.7) L 06/22/18 04:04 Albumin/Globulin Ratio 0.8 (1.1-2.2) L 06/22/18 04:04 Ur Specimen Adequacy See below A 06/22/18 02:15 Urine Clarity Turbid (Clear) A 06/22/18 02:15 Urine Microscopic RBC 30-50 per hpf (0-3) H 06/22/18 02:15 Urine Microscopic WBC 15-30 per hpf (0-3) H 06/22/18 02:15 Ur Squamous Epith Cells Many per lpf (None-Few) H 06/22/18 02:15 Amorphous Sediment Many (Few) H 06/22/18 02:15 Urine Bacteria Moderate per hpf (None-Few) H 06/22/18 02:15 Periton Tot Nuc Cells > 65550 TNC/mcL (0-300) H 06/21/18 13:47 Urine Opiates Screen Positive ng/mL (Gwztdz=005) H 06/22/18 02:15 Acetaminophen < 10 mcg/mL (10-20) L 06/21/18 15:05 U Benzodiazepines Scrn Positive ng/mL (Jwyejd=187) H 06/22/18 02:15 - Head Head exam: Present: atraumatic, normal inspection - Eye Eye exam: Present: PERRL Pupils: Present: PERRL - ENT ENT exam: Present: mucous membranes moist - Neck Neck exam: Present: full ROM - Respiratory Respiratory exam: Present: decreased breath sounds - Expanded Respiratory Exam Location: decreased breath sounds: Left, Right, Lower - Cardiovascular Cardiovascular exam: Present: RRR, +S1, +S2 - GI/Abdominal GI/Abdominal exam: Present: diminished bowel sounds, distended, tenderness - Extremities Exam Extremities exam: Present: pedal edema (4+ edema) - Back Exam Back exam: Present: vertebral tenderness - Neurological Exam Neurological exam: Present: alert - Psychiatric Psychiatric exam: Present: normal affect - Skin Skin exam: Present: warm (jaundice) Palliative Quality Palliative Quality: Screen for Code Status: Yes, Screen for Goals of Care: Yes, Screen for Pain: Yes, If Pain Regimen Started, Initiate Bowel Regimen: NA, Screen for Nausea/Vomitting: Yes Code Status: 06/21/18 14:26 Resuscitation Status: Active [RES] Stat Comment: Resuscitation Status: Full Code 06/21/18 21:15 Resuscitation Status: Active [RES] Routine Comment: Resuscitation Status: [id number] - Labs CBC & Chem 7: 06/22/18 04:04 06/22/18 04:04 Labs: Laboratory Results - last 24 hr 06/21/18 06/21/18 06/21/18 13:37 13:47 15:05 WBC RBC Hgb Hct MCV MCH MCHC RDW Plt Count MPV Seg Neutrophils % Band Neutrophils % Lymphocytes % Neutrophils # Lymphocytes # Platelet Estimate Microcytosis Acanthocytes (Spur) Sample Site ABG pH ABG pCO2 ABG pO2 ABG HCO3 ABG Total CO2 ABG O2 Saturation ABG Base Excess Danny Test O2 Delivery Device Inspired O2 Sodium Potassium Chloride Carbon Dioxide BUN Creatinine Est GFR ( Amer) Est GFR (Non-Af Amer) BUN/Creatinine Ratio Glucose POC Glucose 80 Calculated Osmolality Calcium Venous Ioniz Calcium Phosphorus Magnesium Total Bilirubin Direct Bilirubin Indirect Bilirubin AST ALT Alkaline Phosphatase Ammonia Serum Total Protein Albumin Globulin Albumin/Globulin Ratio Random Cortisol Ur Specimen Adequacy Urine Color Urine Clarity Urine pH Ur Specific Erskine Urine Protein Urine Glucose (UA) Urine Ketones Urine Blood Urine Nitrite Urine Bilirubin Urine Urobilinogen Ur Leukocyte Esterase Urine Microscopic RBC Urine Microscopic WBC Ur Squamous Epith Cells Ur Transition Epith Cell Amorphous Sediment Urine Bacteria Ur Culture Indicated? Peritoneal Appearance CLOUDY Peritoneal Volume 59.0 Periton Neutrophils 96.0 Periton Band Neuts Test Not Performed Peritoneal Eosinophils Test Not Performed Peritoneal Basophils Test Not Performed Periton Lymphocytes % 2.0 Periton Monocytes % 2.0 Periton Other Cells % Test Not Performed Urine Opiates Screen Acetaminophen < 10 L Ur Barbiturates Screen Ur Phencyclidine Scrn Ur Amphetamines Screen U Benzodiazepines Scrn Urine Cocaine Screen U Marijuana (THC) Screen Ur Drug Screen Interp 06/21/18 06/21/18 06/21/18 15:06 16:34 20:23 WBC RBC Hgb Hct MCV MCH MCHC RDW Plt Count MPV Seg Neutrophils % Band Neutrophils % Lymphocytes % Neutrophils # Lymphocytes # Platelet Estimate Microcytosis Acanthocytes (Spur) Sample Site L Radial ABG pH 7.25 L ABG pCO2 38 ABG pO2 83 L ABG HCO3 17 L ABG Total CO2 18 L ABG O2 Saturation 94 L ABG Base Excess -10 L Danny Test Positive O2 Delivery Device HFNC Inspired O2 60.0 Sodium Potassium Chloride Carbon Dioxide BUN Creatinine Est GFR ( Amer) Est GFR (Non-Af Amer) BUN/Creatinine Ratio Glucose POC Glucose 119 H Calculated Osmolality Calcium Venous Ioniz Calcium Phosphorus Magnesium Total Bilirubin Direct Bilirubin Indirect Bilirubin AST ALT Alkaline Phosphatase Ammonia Serum Total Protein Albumin Globulin Albumin/Globulin Ratio Random Cortisol 37.8 Ur Specimen Adequacy Urine Color Urine Clarity Urine pH Ur Specific Erskine Urine Protein Urine Glucose (UA) Urine Ketones Urine Blood Urine Nitrite Urine Bilirubin Urine Urobilinogen Ur Leukocyte Esterase Urine Microscopic RBC Urine Microscopic WBC Ur Squamous Epith Cells Ur Transition Epith Cell Amorphous Sediment Urine Bacteria Ur Culture Indicated? Peritoneal Appearance Peritoneal Volume Periton Neutrophils Periton Band Neuts Peritoneal Eosinophils Peritoneal Basophils Periton Lymphocytes % Periton Monocytes % Periton Other Cells % Urine Opiates Screen Acetaminophen Ur Barbiturates Screen Ur Phencyclidine Scrn Ur Amphetamines Screen U Benzodiazepines Scrn Urine Cocaine Screen U Marijuana (THC) Screen Ur Drug Screen Interp 06/21/18 06/21/18 06/21/18 21:27 23:20 23:21 WBC RBC Hgb Hct MCV MCH MCHC RDW Plt Count MPV Seg Neutrophils % Band Neutrophils % Lymphocytes % Neutrophils # Lymphocytes # Platelet Estimate Microcytosis Acanthocytes (Spur) Sample Site ABG pH ABG pCO2 ABG pO2 ABG HCO3 ABG Total CO2 ABG O2 Saturation ABG Base Excess Danny Test O2 Delivery Device Inspired O2 Sodium 135 L Potassium 5.1 Chloride 101 Carbon Dioxide 20 L BUN 41 H Creatinine 2.92 H Est GFR ( Amer) 19 L Est GFR (Non-Af Amer) 16 L BUN/Creatinine Ratio 14 Glucose 306 H POC Glucose 307 H 283 H Calculated Osmolality 302 H Calcium 6.4 L Venous Ioniz Calcium Phosphorus Magnesium Total Bilirubin 11.3 H Direct Bilirubin 6.8 H Indirect Bilirubin 4.5 H AST 454 H ALT 94 H Alkaline Phosphatase 383 H Ammonia Serum Total Protein 4.7 L Albumin 2.2 L Globulin 2.5 Albumin/Globulin Ratio 0.9 L Random Cortisol Ur Specimen Adequacy Urine Color Urine Clarity Urine pH Ur Specific Erskine Urine Protein Urine Glucose (UA) Urine Ketones Urine Blood Urine Nitrite Urine Bilirubin Urine Urobilinogen Ur Leukocyte Esterase Urine Microscopic RBC Urine Microscopic WBC Ur Squamous Epith Cells Ur Transition Epith Cell Amorphous Sediment Urine Bacteria Ur Culture Indicated? Peritoneal Appearance Peritoneal Volume Periton Neutrophils Periton Band Neuts Peritoneal Eosinophils Peritoneal Basophils Periton Lymphocytes % Periton Monocytes % Periton Other Cells % Urine Opiates Screen Acetaminophen Ur Barbiturates Screen Ur Phencyclidine Scrn Ur Amphetamines Screen U Benzodiazepines Scrn Urine Cocaine Screen U Marijuana (THC) Screen Ur Drug Screen Interp 06/22/18 06/22/18 06/22/18 02:15 02:15 04:04 WBC 28.9 H RBC 4.19 Hgb 10.4 L Hct 35.8 MCV 85.4 MCH 24.8 L MCHC 29.1 L RDW 28.9 H Plt Count 396 MPV 9.3 L Seg Neutrophils % 88.0 Band Neutrophils % 10.0 H Lymphocytes % 2.0 Neutrophils # 28.3 H Lymphocytes # 0.6 Platelet Estimate Normal Microcytosis Present A Acanthocytes (Spur) 1+ A Sample Site ABG pH ABG pCO2 ABG pO2 ABG HCO3 ABG Total CO2 ABG O2 Saturation ABG Base Excess Danny Test O2 Delivery Device Inspired O2 Sodium Potassium Chloride Carbon Dioxide BUN Creatinine Est GFR ( Amer) Est GFR (Non-Af Amer) BUN/Creatinine Ratio Glucose POC Glucose Calculated Osmolality Calcium Venous Ioniz Calcium Phosphorus Magnesium Total Bilirubin Direct Bilirubin Indirect Bilirubin AST ALT Alkaline Phosphatase Ammonia Serum Total Protein Albumin Globulin Albumin/Globulin Ratio Random Cortisol Ur Specimen Adequacy See below A Urine Color Brown Urine Clarity Turbid A Urine pH TNP Ur Specific Ers[place]ine TNP Urine Protein TNP Urine Glucose (UA) TNP Urine Ketones TNP Urine Blood TNP Urine Nitrite TNP Urine Bilirubin TNP Urine Urobilinogen TNP Ur Leukocyte Esterase TNP Urine Microscopic RBC 30-50 H Urine Microscopic WBC 15-30 H Ur Squamous Epith Cells Many H Ur Transition Epith Cell Few Amorphous Sediment Many H Urine Bacteria Moderate H Ur Culture Indicated? NO Peritoneal Appearance Peritoneal Volume Periton Neutrophils Periton Band Neuts Peritoneal Eosinophils Peritoneal Basophils Periton Lymphocytes % Periton Monocytes % Periton Other Cells % Urine Opiates Screen Positive H Acetaminophen Ur Barbiturates Screen Negative Ur Phencyclidine Scrn Negative Ur Amphetamines Screen Negative U Benzodiazepines Scrn Positive H Urine Cocaine Screen Negative U Marijuana (THC) Screen Negative Ur Drug Screen Interp See Below 06/22/18 06/22/18 06/22/18 04:04 04:36 09:50 WBC RBC Hgb Hct MCV MCH MCHC RDW Plt Count MPV Seg Neutrophils % Band Neutrophils % Lymphocytes % Neutrophils # Lymphocytes # Platelet Estimate Microcytosis Acanthocytes (Spur) Sample Site ABG pH ABG pCO2 ABG pO2 ABG HCO3 ABG Total CO2 ABG O2 Saturation ABG Base Excess Danny Test O2 Delivery Device Inspired O2 Sodium 131 L Potassium 4.6 Chloride 95 L Carbon Dioxide 23 BUN 42 H Creatinine 2.83 H Est GFR ( Amer) 20 L Est GFR (Non-Af Amer) 17 L BUN/Creatinine Ratio 15 Glucose 427 H POC Glucose Calculated Osmolality 301 H Calcium 6.1 L Venous Ioniz Calcium 0.78 L Phosphorus 6.7 H Magnesium 1.9 Total Bilirubin 11.7 H Direct Bilirubin Indirect Bilirubin AST 346 H ALT 86 H Alkaline Phosphatase 365 H Ammonia 66 H Serum Total Protein 4.5 L Albumin 2.0 L Globulin 2.5 Albumin/Globulin Ratio 0.8 L Random Cortisol Ur Specimen Adequacy Urine Color Urine Clarity Urine pH Ur Specific Ers[place]ine Urine Protein Urine Glucose (UA) Urine Ketones Urine Blood Urine Nitrite Urine Bilirubin Urine Urobilinogen Ur Leukocyte Esterase Urine Microscopic RBC Urine Microscopic WBC Ur Squamous Epith Cells Ur Transition Epith Cell Amorphous Sediment Urine Bacteria Ur Culture Indicated? Peritoneal Appearance Peritoneal Volume Periton Neutrophils Periton Band Neuts Peritoneal Eosinophils Peritoneal Basophils Periton Lymphocytes % Periton Monocytes % Periton Other Cells % Urine Opiates Screen Acetaminophen Ur Barbiturates Screen Ur Phencyclidine Scrn Ur Amphetamines Screen U Benzodiazepines Scrn Urine Cocaine Screen U Marijuana (THC) Screen Ur Drug Screen Interp - Impressions Impressions Chest X-Ray 06/21/18 11:15 IMPRESSION: 1. Lower lung volumes, otherwise, no acute cardiopulmonary disease. D/ / 06/21/2018 12:01:00 Yasmin Springer MD / Dulce Ross Interpreting Provider: Yasmin Springer MD Head CT 06/21/18 11:15 IMPRESSION: No acute intracranial abnormality. D/ / Harley Rose MD / Harley Rose MD Interpreting Provider: Harley Rose MD Abdomen/Pelvis CT 06/21/18 11:16 IMPRESSION: Worsening pulmonary metastatic disease. Suspected worsening of the hepatic metastatic disease. Moderate amount of free fluid within the abdomen and pelvis. D/ / 06/21/2018 17:01:56 Ish Hagan MD / linnea Interpreting Provider: Ish Hagan MD Chest CT 06/21/18 11:16 IMPRESSION: Worsening thoracic metastatic disease manifested by increase in size of innumerable pulmonary nodules. Please see same-day CT abdomen/pelvis for additional findings. Dr. Rubin spoke with the primary team on 06/21/2018 around 4:50 p.m. regarding abdominopelvic findings. Critical results were called by Dr. Jose Obrien to [facility] Shepard on 06/21/2018 at 17:00. D/ / Jose Obrien / Jose Obrien Interpreting Provider: Jose Obrien Chest X-Ray 06/21/18 14:49 IMPRESSION: Line placement without pneumothorax. Vascular congestion. D/ / 06/21/2018 16:07:34 Harley Rose MD / linnea Interpreting Provider: Harley Rose MD - ABG Interpretation ABG results: ABG ABG pH 7.25 pH Units (7.32-7.45) L 06/21/18 20:23 ABG pCO2 38 mmHg (35-45) 06/21/18 20:23 ABG pO2 83 mmHg (85-104) L 06/21/18 20:23 ABG O2 Saturation 94 % (95-98) L 06/21/18 20:23 PT/INR, D-dimer PT 20.5 Seconds (9.4-12.1) H 06/21/18 11:28 Consult Discharge Plan - Plan Referrals: Sharon Mata MD [Primary Care Provider] -
[2018-06-22] MEDS: MORPHINE SUL Oral CONC 10 MG/0.5 ML ORAL.SYG PO PRN (18:52)
[2018-06-23] MEDS: Norepinephrine 8 MG in D5% in Water 500 ML IVC SCH ×3 (03:44→21:06)
[2018-06-23 03:54] LABS: Basophils % 0.2 %; Lymphocytes % 2.2 %; Monocytes % 3.1 %
[2018-06-23 03:55] LABS: Basophils # 0.1 K/mcL (0.0-0.2); Hematocrit 37.5 % (35.3-44.9); Hemoglobin 11.1 g/dL (11.5-15.4); Immature Granulocytes % 1.3 % (0-4); Lymphocytes # 0.6 K/mcL (0.6-4.6); Mean Corpuscular HGB Conc 29.6 g/dL (31.6-35.5); Mean Corpuscular Volume 84.5 fL (83.0-100.0); Mean Platelet Volume 9.4 fL (9.4-12.4); Monocytes # 0.8 K/mcL (0.0-1.3); Neutrophils # 23.2 K/mcL (1.6-8.9); Platelet Count 325 K/mcL (140-400); Red Blood Count 4.44 M/mcL (3.82-4.97); Red Cell Distribution Width 28.7 % (11.5-14.5); Segmented Neutrophils % 93.2 %
[2018-06-23 04:21] LABS: Platelet Estimate Normal (Normal)
[2018-06-23 05:02] LABS: Albumin/Globulin Ratio 0.8 (1.1-2.2); Bilirubin,Total 12.8 mg/dL (0.3-1.0); Globulin 2.6 g/dL (2.4-3.5); Magnesium 1.8 mg/dL (1.6-2.6); Phosphorous 6.5 mg/dL (2.7-4.5); Potassium 4.3 mEq/L (3.5-5.1); Total Protein 4.6 g/dL (6.4-8.9)
[2018-06-23] MEDS: MORPHINE SUL Oral CONC 10 MG/0.5 ML ORAL.SYG PO PRN ×2 (06:22→10:49)
[2018-06-23] MEDS: Piperacillin/Tazobactam 3.375 GM in 0.9 % Sodium Chloride Mini Bag 100 ML IVPB SCH ×2 (07:54→20:11)
[2018-06-23] MEDS ORDERED: Sodium Bicarbonate 150 MEQ in D5% in Water 1,000 ML IVC SCH (09:45)
--- NOTE | 2018-06-23 09:53 | Pulmonology Progress Note ---
Date of Encounter: 06/23/18 Time of Encounter: 09:00 Assessment and Plan (1) Septic shock Current Visit: Yes Status: Acute Patient septic shock secondary to intra-abdominal with shock situation also complicated by her hepatic failure thought it was SBP no other intra-abdominal source per CT abdomen. To continue with broad-spectrum antibiotics. To continue Levophed. If the family changes the goals of We will de-escalate therapy accordingly. (2) Abdominal pain Current Visit: Yes Status: Acute due to metastatic liver disease patient has huge hepatomegaly The capsule stretch pain may be the main etiology for this abdominal pain. Pain management according to palliative care . Qualifiers: Abdominal location: generalized Qualified Code(s): R10.84 - Generalized abdominal pain (3) Acute kidney injury Current Visit: Yes Status: Acute Patient urine output as is minimal to nothing she is now with worsening serum creatinine with this severe hepatocellular failure is no utility off consulting nephrology as patient is a poor candidate for dialysis with background of hepatocellular failure which seems like it is irreversible. (4) Metastatic colon cancer to liver Current Visit: Yes Status: Acute Patient has stage IV metastatic colon cancer with huge hepatomegaly, causing he patocellular failure (5) Goals of care, counseling/discussion Current Visit: Yes Status: Acute Patient and changed her to goals of care to DNRCCA -DNI. Waiting for her son to arrive most likely after that they might change the goals of care to comfort care. 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 Most likely she will transitioned to comfort care tomorrow. Objective PUL Vital signs: Last Vital Signs Temp 96.4 F L 06/23/18 04:45 Pulse 77 06/23/18 06:00 Resp 16 06/23/18 06:00 BP 97/68 06/23/18 06:00 Pulse Ox 92 06/23/18 06:00 General appearance: appears uncomfortable (due to abdominal pain ) Auscultation: bilateral: diminished breath sounds (basilar diminshed breadth sounds ), rales (scattered rales ) Gastrointestinal: hepatomegaly (distended abdomen) other (more drowsy was able to nod for some coversations ) other (more drowsy ) Results - Laboratory Findings CBC and BMP: 06/23/18 03:35 06/23/18 03:35 ABG ABG pH 7.25 pH Units (7.32-7.45) L 06/21/18 20:23 ABG pCO2 38 mmHg (35-45) 06/21/18 20:23 ABG pO2 83 mmHg (85-104) L 06/21/18 20:23 ABG O2 Saturation 94 % (95-98) L 06/21/18 20:23 PT/INR, D-dimer PT 20.5 Seconds (9.4-12.1) H 06/21/18 11:28 Abnormal lab findings: Abnormal lab results WBC 24.9 K/mcL (4.3-11.1) H 06/23/18 03:35 Hgb 11.1 g/dL (11.5-15.4) L 06/23/18 03:35 MCH 25.0 pg (28.0-33.3) L 06/23/18 03:35 MCHC 29.6 g/dL (31.6-35.5) L 06/23/18 03:35 RDW 28.7 % (11.5-14.5) H 06/23/18 03:35 Band Neutrophils % 10.0 % (0-4) H 06/22/18 04:04 Neutrophils # 23.2 K/mcL (1.6-8.9) H 06/23/18 03:35 Poikilocytosis 1+ (Not Present) A 06/21/18 11: Anisocytosis 2+ (Not Present) A 06/21/18 11: Microcytosis Present (Not Present) A 06/22/18 04:04 Acanthocytes (Spur) 1+ (Not Present) A 06/22/18 04:04 PT 20.5 Seconds (9.4-12.1) H 06/21/18 11:28 ABG pH 7.25 pH Units (7.32-7.45) L 06/21/18 20:23 ABG pO2 83 mmHg (85-104) L 06/21/18 20:23 ABG HCO3 17 mEq/L (21-27) L 06/21/18 20:23 ABG Total CO2 18 mEq/L (20-26) L 06/21/18 20:23 ABG O2 Saturation 94 % (95-98) L 06/21/18 20:23 ABG Base Excess -10 mEq/L (-2 to 3) L 06/21/18 20:23 Sodium 128 mEq/L (136-145) L 06/23/18 03:35 Chloride 94 mEq/L (98-107) L 06/23/18 03:35 Carbon Dioxide 19 mEq/L (23-29) L 06/23/18 03:35 BUN 43 mg/dL (8-23) H 06/23/18 03:35 Creatinine 3.02 mg/dL (0.60-1.20) H 06/23/18 03:35 Est GFR ( Amer) 19 (> 60) L 06/23/18 03:35 Est GFR (Non-Af Amer) 15 (> 60) L 06/23/18 03:35 Glucose 159 mg/dL (70-105) H 06/23/18 03:35 POC Glucose 219 mg/dL (70-99) H 06/22/18 15:06 Calcium 7.0 mg/dL (8.6-10.3) L 06/23/18 03:35 Venous Ioniz Calcium 0.78 mmol/L (1.15-1.35) L 06/22/18 04:36 Phosphorus 6.5 mg/dL (2.7-4.5) H 06/23/18 03:35 Total Bilirubin 12.8 mg/dL (0.3-1.0) H 06/23/18 03:35 Direct Bilirubin 6.8 mg/dL (0.0-0.2) H 06/21/18 21:27 Indirect Bilirubin 4.5 mg/dL (0.0-1.2) H 06/21/18 21:27 AST 126 Units/L (13-39) H 06/23/18 03:35 ALT 65 Units/L (7-52) H 06/23/18 03:35 Alkaline Phosphatase 340 Units/L (34-104) H 06/23/18 03:35 Ammonia 64 mcmol/L (16-53) H 06/23/18 03:35 Serum Total Protein 4.6 g/dL (6.4-8.9) L 06/23/18 03:35 Albumin 2.0 g/dL (3.5-5.7) L 06/23/18 03:35 Albumin/Globulin Ratio 0.8 (1.1-2.2) L 06/23/18 03:35 Ur Specimen Adequacy See below A 06/22/18 02:15 Urine Clarity Turbid (Clear) A 06/22/18 02:15 Urine Microscopic RBC 30-50 per hpf (0-3) H 06/22/18 02:15 Urine Microscopic WBC 15-30 per hpf (0-3) H 06/22/18 02:15 Ur Squamous Epith Cells Many per lpf (None-Few) H 06/22/18 02:15 Amorphous Sediment Many (Few) H 06/22/18 02:15 Urine Bacteria Moderate per hpf (None-Few) H 06/22/18 02:15 Periton Tot Nuc Cells > 17899 TNC/mcL (0-300) H 06/21/18 13:47 Urine Opiates Screen Positive ng/mL (Hjikma=459) H 06/22/18 02:15 Acetaminophen < 10 mcg/mL (10-20) L 06/21/18 15:05 U Benzodiazepines Scrn Positive ng/mL (Qegmhv=511) H 06/22/18 02:15 - Microbiology Findings Microbiology Findings: Microbiology, Last 48 Hours 06/22/18 02:15 Urine Culture - Final Urine,[place] Port No growth. 06/21/18 11:28 Blood Culture - Preliminary Port System Culture is incubating and being continuously monitored for growth. Final report to follow. 06/21/18 11:55 Blood Culture - Preliminary Peripheral Venipuncture Culture is incubating and being continuously monitored for growth. Final report to follow. - Clinical Findings Intake & Output: Intake & Output 06/22/18 06/23/18 06/23/18 23:59 07:59 15:59 Intake Total 1508 / 1508 608 / 608 Output Total 50 / 50 25 / 25 Balance 1458 / 1458 583 / 583 Weight 90.7 kg Consult Discharge Plan - Plan Referrals: Sharon Mata MD [Primary Care Provider] -
[2018-06-23] MEDS ORDERED: Lactulose Oral Soln 20 GM/30 ML UDC PO ONE (11:23)
--- NOTE | 2018-06-23 12:29 | Palliative Progress Note ---
Date of Encounter: 06/23/18 Time of Encounter: 12:00 - Assessment and plan (1) Goals of care, counseling/discussion Current Visit: Yes Status: Acute Assessment and plan: Patient Tom and niece at bedside. Patient opens eyes to voice but is nonverbal at present. Desires medical interventions but no advanced respiratory intubation as they are awaiting the [place] of [place]. Anticipate his arrival on Sunday06/24/18 around 12pm. Patient with colon cancer with mets to liver. Patient with overall poor prognosis. Will liberalize visitation and comfort care ordered. Patient may not survive until sons arrival so I discussed with family that any other family can visit [facility]. Patient remains on Levophed but B/P 89/65. Renal function declining, no output. BMs noted. Once son arrives I anticipate transition to comfort care. Patient and family did decide on DNRCC - A, DNI status. Will continue to follow. (2) Abdominal pain Current Visit: Yes Status: Acute Assessment and plan: Patient with metastatic colon cancer to liver. Patient with anasarca and ascites. Distended tender abdomen. S/P paracentesis with removal of 60cc. States abdominal pain is 3/10 and ache and difficulty getting comfortable. Low dose morphine PRN for comfort will change to Oxycodone as renal function worsening. Qualifiers: Abdominal location: generalized Qualified Code(s): R10.84 - Generalized abdominal pain (3) Septic shock Current Visit: Yes Status: Acute Assessment and plan: Receiving Levophed. Medical care per Digital Developer. (4) Metastatic colon cancer to liver Current Visit: Yes Status: Acute - Time Spent With Patient Total time spent is greater than 50% in coordination of care (as documented) at patient's floor/unit and/or counseling patient: 25 - 35 minutes - Subjective Interval history: Patient in ICU. Niece and Tom at bedside. Patient remains on high flow O2. Recently diagnosed with colon cancer and now with mets to liver. Patient with severe jaundice. Patient opens eyes to name but is extremely weak. Conducted bedside discussion with family. - Constitutional Vitals: Abnormal lab results WBC 24.9 K/mcL (4.3-11.1) H 06/23/18 03:35 Hgb 11.1 g/dL (11.5-15.4) L 06/23/18 03:35 MCH 25.0 pg (28.0-33.3) L 06/23/18 03:35 MCHC 29.6 g/dL (31.6-35.5) L 06/23/18 03:35 RDW 28.7 % (11.5-14.5) H 06/23/18 03:35 Band Neutrophils % 10.0 % (0-4) H 06/22/18 04:04 Neutrophils # 23.2 K/mcL (1.6-8.9) H 06/23/18 03:35 Poikilocytosis 1+ (Not Present) A 06/21/18 11:28 Anisocytosis 2+ (Not Present) A 06/21/18 11:28 Microcytosis Present (Not Present) A 06/22/18 04:04 Acanthocytes (Spur) 1+ (Not Present) A 06/22/18 04:04 PT 20.5 Seconds (9.4-12.1) H 06/21/18 11:28 ABG pH 7.25 pH Units (7.32-7.45) L 06/21/18 20:23 ABG pO2 83 mmHg (85-104) L 06/21/18 20:23 ABG HCO3 17 mEq/L (21-27) L 06/21/18 20:23 ABG Total CO2 18 mEq/L (20-26) L 06/21/18 20:23 ABG O2 Saturation 94 % (95-98) L 06/21/18 20:23 ABG Base Excess -10 mEq/L (-2 to 3) L 06/21/18 20:23 Sodium 128 mEq/L (136-145) L 06/23/18 03:35 Chloride 94 mEq/L (98-107) L 06/23/18 03:35 Carbon Dioxide 19 mEq/L (23-29) L 06/23/18 03:35 BUN 43 mg/dL (8-23) H 06/23/18 03:35 Creatinine 3.02 mg/dL (0.60-1.20) H 06/23/18 03:35 Est GFR ( Amer) 19 (> 60) L 06/23/18 03:35 Est GFR (Non-Af Amer) 15 (> 60) L 06/23/18 03:35 Glucose 159 mg/dL (70-105) H 06/23/18 03:35 POC Glucose 219 mg/dL (70-99) H 06/22/18 15:06 Calcium 7.0 mg/dL (8.6-10.3) L 06/23/18 03:35 Venous Ioniz Calcium 0.78 mmol/L (1.15-1.35) L 06/22/18 04:36 Phosphorus 6.5 mg/dL (2.7-4.5) H 06/23/18 03:35 Total Bilirubin 12.8 mg/dL (0.3-1.0) H 06/23/18 03:35 Direct Bilirubin 6.8 mg/dL (0.0-0.2) H 06/21/18 21:27 Indirect Bilirubin 4.5 mg/dL (0.0-1.2) H 06/21/18 21:27 AST 126 Units/L (13-39) H 06/23/18 03:35 ALT 65 Units/L (7-52) H 06/23/18 03:35 Alkaline Phosphatase 340 Units/L (34-104) H 06/23/18 03:35 Ammonia 64 mcmol/L (16-53) H 06/23/18 03:35 Serum Total Protein 4.6 g/dL (6.4-8.9) L 06/23/18 03:35 Albumin 2.0 g/dL (3.5-5.7) L 06/23/18 03:35 Albumin/Globulin Ratio 0.8 (1.1-2.2) L 06/23/18 03:35 Ur Specimen Adequacy See below A 06/22/18 02:15 Urine Clarity Turbid (Clear) A 06/22/18 02:15 Urine Microscopic RBC 30-50 per hpf (0-3) H 06/22/18 02:15 Urine Microscopic WBC 15-30 per hpf (0-3) H 06/22/18 02:15 Ur Squamous Epith Cells Many per lpf (None-Few) H 06/22/18 02:15 Amorphous Sediment Many (Few) H 06/22/18 02:15 Urine Bacteria Moderate per hpf (None-Few) H 06/22/18 02:15 Periton Tot Nuc Cells > 35579 TNC/mcL (0-300) H 06/21/18 13:47 Urine Opiates Screen Positive ng/mL (Wjvezl=556) H 06/22/18 02:15 Acetaminophen < 10 mcg/mL (10-20) L 06/21/18 15:05 U Benzodiazepines Scrn Positive ng/mL (Cgiiki=049) H 06/22/18 02:15 - Head Head exam: Present: atraumatic, normal inspection, normocephalic - Eye Eye exam: Present: scleral icterus Pupils: Present: PERRL - ENT ENT exam: Present: mucous membranes moist - Neck Neck exam: Present: tenderness - Respiratory Respiratory exam: Present: decreased breath sounds - Expanded Respiratory Exam Location: decreased breath sounds: Left, Right, Lower - Cardiovascular Cardiovascular exam: Present: RRR, +S1, +S2 - Expanded Cardiovascular Exam Peripheral pulses: 1+: Carotid (L) PM, Carotid (R) PM, Radial (L), Radial (R), Femoral (L) PM, Femoral (R) PM, Posterior Tibialis (L), Posterior Tibialis (R), Dorsalis Pedis (L) PM, Dorsalis Pedis (R) PM - GI/Abdominal GI/Abdominal exam: Present: diminished bowel sounds, distended, tenderness Additional comments: Anasarca - Rectal Rectal exam: Present: tenderness - Extremities Exam Extremities exam: Present: pedal edema (4+ pedal edema) - Neurological Exam Neurological exam: Present: altered (Ammonia level elevated) - Psychiatric Psychiatric exam: Present: flat affect - Skin Skin exam: Present: warm Additional comments: jaundice Palliative Quality Palliative Quality: Screen for Code Status: Yes, Screen for Goals of Care: Yes, Screen for Pain: Yes, If Pain Regimen Started, Initiate Bowel Regimen: NA, Screen for Nausea/Vomitting: Yes Code Status: 06/21/18 14:26 Resuscitation Status: Active [RES] Stat Comment: Resuscitation Status: Full Code 06/21/18 21:15 Resuscitation Status: Active [RES] Routine Comment: Resuscitation Status: [id number] - Labs CBC & Chem 7: 06/23/18 03:35 06/23/18 03:35 Labs: Laboratory Results - last 24 hr 06/22/18 06/23/18 06/23/18 15:06 03:35 03:35 WBC 24.9 H RBC 4.44 Hgb 11.1 L Hct 37.5 MCV 84.5 MCH 25.0 L MCHC 29.6 L RDW 28.7 H Plt Count 325 MPV 9.4 Immature Gran % 1.3 Seg Neutrophils % 93.2 Lymphocytes % 2.2 Monocytes % 3.1 Eosinophils % 0.0 Basophils % 0.2 Neutrophils # 23.2 H Lymphocytes # 0.6 Monocytes # 0.8 Eosinophils # 0.0 Basophils # 0.1 Platelet Estimate Normal Sodium 128 L Potassium 4.3 Chloride 94 L Carbon Dioxide 19 L BUN 43 H Creatinine 3.02 H Est GFR ( Amer) 19 L Est GFR (Non-Af Amer) 15 L BUN/Creatinine Ratio 14 Glucose 159 H POC Glucose 219 H Calculated Osmolality 280 Calcium 7.0 L Phosphorus 6.5 H Magnesium 1.8 Total Bilirubin 12.8 H AST 126 H ALT 65 H Alkaline Phosphatase 340 H Ammonia Serum Total Protein 4.6 L Albumin 2.0 L Globulin 2.6 Albumin/Globulin Ratio 0.8 L 06/23/18 03:35 WBC RBC Hgb Hct MCV MCH MCHC RDW Plt Count MPV Immature Gran % Seg Neutrophils % Lymphocytes % Monocytes % Eosinophils % Basophils % Neutrophils # Lymphocytes # Monocytes # Eosinophils # Basophils # Platelet Estimate Sodium Potassium Chloride Carbon Dioxide BUN Creatinine Est GFR ( Amer) Est GFR (Non-Af Amer) BUN/Creatinine Ratio Glucose POC Glucose Calculated Osmolality Calcium Phosphorus Magnesium Total Bilirubin AST ALT Alkaline Phosphatase Ammonia 64 H Serum Total Protein Albumin Globulin Albumin/Globulin Ratio - Impressions Impressions Paracentesis Ultrasound 06/21/18 11:55 IMPRESSION: Successful ultrasound guided paracentesis. D/ / Simón Warren MD / Simón Warren MD Interpreting Provider: Simón Warren MD - ABG Interpretation ABG results: ABG ABG pH 7.25 pH Units (7.32-7.45) L 06/21/18 20:23 ABG pCO2 38 mmHg (35-45) 06/21/18 20:23 ABG pO2 83 mmHg (85-104) L 06/21/18 20:23 ABG O2 Saturation 94 % (95-98) L 06/21/18 20:23 PT/INR, D-dimer PT 20.5 Seconds (9.4-12.1) H 06/21/18 11:28 Consult Discharge Plan - Plan Referrals: Sharon Mata MD [Primary Care Provider] -
[2018-06-23] MEDS ORDERED: *HR* LORazepam 2 MG/ML VIAL IVP PRN (16:51)
[2018-06-23] MEDS: OXYCODONE Oral CONC 10 MG/0.5 ML ORAL.SYG SL PRN (16:54)
[2018-06-23] MEDS: Vasopressin 40 UNIT in D5% in Water 100 ML IV SCH (21:41)
[2018-06-24] MEDS: Norepinephrine 8 MG in D5% in Water 500 ML IVC SCH ×2 (02:35→09:39)
[2018-06-24 03:56] LABS: Nucleated Red Blood Cells 0.1 /100 WBC (0)
[2018-06-24 03:58] LABS: Mean Corpuscular HGB Conc 29.3 g/dL (31.6-35.5); Mean Corpuscular Hemoglobin 24.9 pg (28.0-33.3); Mean Corpuscular Volume 85.1 fL (83.0-100.0); Mean Platelet Volume 9.8 fL (9.4-12.4); Platelet Count 232 K/mcL (140-400); Red Blood Count 4.82 M/mcL (3.82-4.97); Red Cell Distribution Width 27.4 % (11.5-14.5)
[2018-06-24 04:17] LABS: Albumin 2.1 g/dL (3.5-5.7); Albumin/Globulin Ratio 0.8 (1.1-2.2); Bilirubin,Total 12.7 mg/dL (0.3-1.0); Calcium 7.8 mg/dL (8.6-10.3); Globulin 2.5 g/dL (2.4-3.5); Potassium 4.1 mEq/L (3.5-5.1); Total Protein 4.6 g/dL (6.4-8.9)
[2018-06-24 04:33] LABS: Anisocytosis 1+ (Not Present); Lymphocytes # 0.6 K/mcL (0.6-4.6); Neutrophils # 28.1 K/mcL (1.6-8.9); Platelet Estimate Normal (Normal)
--- NOTE | 2018-06-24 06:48 | Pulmonology Progress Note ---
<Skip Sierra W - Last Filed: 06/24/18 16:52> Objective PUL Vital signs: Last Vital Signs Temp 96.8 F L 06/24/18 08:00 Pulse 76 06/24/18 08:26 Resp 14 06/24/18 08:00 BP 84/51 06/24/18 08:00 Pulse Ox 89 06/24/18 08:00 Results - Laboratory Findings CBC and BMP: 06/24/18 03:35 06/24/18 03:35 ABG ABG pH 7.25 pH Units (7.32-7.45) L 06/21/18 20:23 ABG pCO2 38 mmHg (35-45) 06/21/18 20:23 ABG pO2 83 mmHg (85-104) L 06/21/18 20:23 ABG O2 Saturation 94 % (95-98) L 06/21/18 20:23 PT/INR, D-dimer PT 20.5 Seconds (9.4-12.1) H 06/21/18 11:28 Abnormal lab findings: Abnormal lab results WBC 28.7 K/mcL (4.3-11.1) H 06/24/18 03:35 MCH 24.9 pg (28.0-33.3) L 06/24/18 03:35 MCHC 29.3 g/dL (31.6-35.5) L 06/24/18 03:35 RDW 27.4 % (11.5-14.5) H 06/24/18 03:35 Band Neutrophils % 10.0 % (0-4) H 06/22/18 04:04 Neutrophils # 28.1 K/mcL (1.6-8.9) H 06/24/18 03:35 Nucleated RBCs/100 WBC 0.1 /100 WBC (0) H 06/24/18 03:35 Poikilocytosis 1+ (Not Present) A 06/21/18 11:28 Anisocytosis 1+ (Not Present) A 06/24/18 03:35 Microcytosis Present (Not Present) A 06/22/18 04:04 Acanthocytes (Spur) 1+ (Not Present) A 06/22/18 04:04 PT 20.5 Seconds (9.4-12.1) H 06/21/18 11:28 ABG pH 7.25 pH Units (7.32-7.45) L 06/21/18 20:23 ABG pO2 83 mmHg (85-104) L 06/21/18 20:23 ABG HCO3 17 mEq/L (21-27) L 06/21/18 20:23 ABG Total CO2 18 mEq/L (20-26) L 06/21/18 20:23 ABG O2 Saturation 94 % (95-98) L 06/21/18 20:23 ABG Base Excess -10 mEq/L (-2 to 3) L 06/21/18 20:23 Sodium 126 mEq/L (136-145) L 06/24/18 03:35 Chloride 91 mEq/L (98-107) L 06/24/18 03:35 Carbon Dioxide 20 mEq/L (23-29) L 06/24/18 03:35 BUN 46 mg/dL (8-23) H 06/24/18 03:35 Creatinine 3.31 mg/dL (0.60-1.20) H 06/24/18 03:35 Est GFR ( Amer) 17 (> 60) L 06/24/18 03:35 Est GFR (Non-Af Amer) 14 (> 60) L 06/24/18 03:35 Glucose 172 mg/dL (70-105) H 06/24/18 03:35 POC Glucose 219 mg/dL (70-99) H 06/22/18 15:06 Calculated Osmolality 278 (280-300) L 06/24/18 03:35 Calcium 7.8 mg/dL (8.6-10.3) L 06/24/18 03:35 Venous Ioniz Calcium 0.78 mmol/L (1.15-1.35) L 06/22/18 04:36 Phosphorus 6.5 mg/dL (2.7-4.5) H 06/23/18 03:35 Total Bilirubin 12.7 mg/dL (0.3-1.0) H 06/24/18 03:35 Direct Bilirubin 6.8 mg/dL (0.0-0.2) H 06/21/18 21:27 Indirect Bilirubin 4.5 mg/dL (0.0-1.2) H 06/21/18 21:27 AST 50 Units/L (13-39) H 06/24/18 03:35 Alkaline Phosphatase 316 Units/L (34-104) H 06/24/18 03:35 Ammonia 64 mcmol/L (16-53) H 06/23/18 03:35 Serum Total Protein 4.6 g/dL (6.4-8.9) L 06/24/18 03:35 Albumin 2.1 g/dL (3.5-5.7) L 06/24/18 03:35 Albumin/Globulin Ratio 0.8 (1.1-2.2) L 06/24/18 03:35 Ur Specimen Adequacy See below A 06/22/18 02:15 Urine Clarity Turbid (Clear) A 06/22/18 02:15 Urine Microscopic RBC 30-50 per hpf (0-3) H 06/22/18 02:15 Urine Microscopic WBC 15-30 per hpf (0-3) H 06/22/18 02:15 Ur Squamous Epith Cells Many per lpf (None-Few) H 06/22/18 02:15 Amorphous Sediment Many (Few) H 06/22/18 02:15 Urine Bacteria Moderate per hpf (None-Few) H 06/22/18 02:15 Periton Tot Nuc Cells > 07406 TNC/mcL (0-300) H 06/21/18 13:47 Urine Opiates Screen Positive ng/mL (Ckuszj=609) H 06/22/18 02:15 Acetaminophen < 10 mcg/mL (10-20) L 06/21/18 15:05 U Benzodiazepines Scrn Positive ng/mL (Qlmxee=923) H 06/22/18 02:15 - Microbiology Findings Microbiology Findings: Microbiology, Last 48 Hours 06/22/18 02:15 Urine Culture - Final Urine,[place] No growth. - Clinical Findings Intake & Output: Intake & Output 06/23/18 06/24/18 06/24/18 23:59 07:59 15:59 Intake Total 608 / 608 508 / 508 Output Total 0 / 0 50 / 50 Balance 578 / 578 508 / 508 -50 / -50 Weight 92.65 kg Consult Discharge Plan - Plan Referrals: Sharon Mata MD [Primary Care Provider] - - Attending Attestation I examined this patient and my medical decision-making was reviewed with the Resident Physician. I agree with the documented findings, disposition and treatment plan as described except to the extent set forth below. We independent ly had [id number] contact with the patient Patient seen and examined at bedside Labs, radiology, chart personally reviewed. Management was reviewed during multidisciplinary critical care rounds. Impression: Acute metabolic encephalopathy Acute hypoxic hypercapnic respiratory failure Distributive shock secondary to sepsis on vasopressor Acute kidney injury likely component of hepatorenal syndrome Acute liver failure Septic shock likely intra-abdominal source on antibiotics Metastatic colon cancer Plan: I had extensive conversation with the patient's who is also her next of kin and healthcare power of title attorney. is clear patient would not want aggressive measures at this point given how severely ill that she is and plan to continue supporting her until her son is able to arrive from out of town at that time they were planning on transitioning to full comfort measures. Palliative care also following. Will continue vasopressor support and can escalate this unless there is evidence of serious deterioration in which case it was explained that the situation to be transitioned to comfort measures at that time prior to son arrived. is in agreement of plan and expressed understanding Code.DNAR/DNI =>DNRCC <Sushma Ford R - Last Filed: 06/24/18 17:01> Date of Encounter: 06/24/18 Time of Encounter: 06:48 Assessment and Plan (1) Septic shock Current Visit: Yes Status: Acute Pt BP 58/37 initially Pt has received 2L NS in ED An additional L of LR with sodium bicarb will be given Pt on Levophed Vanc and Zosyn for abx coverage, rocephin given in ED for SBP coverage Diagnostic paracentesis done in ED did not show SBP Abdominal CT did not show any source of infection Family has changed her to DNR-CC, therefore Levophed and abx will be withdrawn. (2) Hepatic encephalopathy syndrome Current Visit: Yes Status: Acute Pt presents with AMS and colon cancer with mets to the liver. Abdominal distention with ascites concerning for abdominal compartment syndrome vs SBP. AST 598 ALT 108 Alk Phos 437 Ammonia 73 PT 20.5 INR 1.8 APTT 35.9 Lactulose and rifaximin will be started. 2L Ns in ED given. Additional 1L LR will be ordered with sodium bicarb. Central venous access achieved via right IJ. Blood cultures pending CT head, chest, abdomen pending - consider surgery consult pending results Palliative care consult - pt now DNR-CC (3) Abdominal pain Current Visit: Yes Status: Acute Likely secondary to hepatomegaly vs abdominal compartment syndrome Pain management via palliative care Pt is now DNR-CC Qualifiers: Abdominal location: generalized Qualified Code(s): R10.84 - Generalized abdominal pain (4) Goals of care, counseling/discussion Current Visit: Yes Status: Acute Palliative care consult Pt now DNR-CC (5) Acute kidney injury Current Visit: Yes Status: Acute Pt has not made any urine today. Likely prerenal due to dehydration. Other differentials include hepatorenal syndrome. Cre 3.19 Pt received 2L NS in ED Will give another liter of LR with sodium bicarb On Levophed for BP Continue to trend Cre Nephro consult if pt continues to worsen and/or remains anuric Pt is not likely a dialysis candidate Pt remains anuric Pt is DNR-CC (6) Metastatic colon cancer to liver Current Visit: Yes Status: Acute Port placed 1 week ago Was supposed to begin chemo yesterday but was unable to do so CT showed hepatomegaly Hepatocellular failure (7) Altered mental status Current Visit: Yes Status: Acute Pt confused and continues stating same phrases Secondary to hepatic encephalopathy vs septic shock WBC uptrending to 28.7 Pt now DNR-CC Qualifiers: Altered mental status type: unspecified Qualified Code(s): R41.82 - Altered mental status, unspecified (8) Elevated bilirubin Current Visit: Yes Status: Acute Initial labs show: Total bili 12.1 Direct bili 7.9 Indirect bili 4.2 Likely secondary to mets in liver and hepatocellular failure Pt now DNR-CC (9) Transaminitis Current Visit: Yes Status: Acute Initial labs show: AST 598 ALT 108 Alk phos 437 Likely due to mets to liver vs septic shock (shock liver) Pt now DNR-CC (10) DVT prophylaxis Current Visit: Yes Status: Acute SCIDs Subjective Principal diagnosis: septic shock with hepatic and renal failure Interval history: Pt continues to deteriorate. Currently on Levophed and vasopressin but continues to have decreased BP. Anuria continues, pt is not a good candidate for HD therefore no nephro consult has been made. Son arrived late this morning and states his mother would not want any further aggressive treatment and would not want to continue suffering. She is now DNR-CC. Vasopressors have been stopped and family is waiting in the room with the patient. Pt time of was declared at 14:43. Objective PUL Vital signs: Last Vital Signs Temp 96.8 F L 06/24/18 00:02 Pulse 77 06/24/18 06:00 Resp 12 06/24/18 06:00 BP 80/48 06/24/18 06:00 Pulse Ox 86 06/24/18 06:00 General appearance: other (opens eyes to voice, otherwise unable to follow commands) Eyes: icteric ENT: oropharynx dry Effort: normal Auscultation: bilateral: diminished breath sounds Cardiovascular: regular rate and rhythm Gastrointestinal: hepatomegaly, other (distended) Integumentary: other (jaundiced) Extremities: pulses normal, edema, anasarca Musculoskeletal: no deformities unable to assess due to mental status Results - Laboratory Findings CBC and BMP: 06/24/18 03:35 06/24/18 03:35 ABG ABG pH 7.25 pH Units (7.32-7.45) L 06/21/18 20:23 ABG pCO2 38 mmHg (35-45) 06/21/18 20:23 ABG pO2 83 mmHg (85-104) L 06/21/18 20:23 ABG O2 Saturation 94 % (95-98) L 06/21/18 20:23 PT/INR, D-dimer PT 20.5 Seconds (9.4-12.1) H 06/21/18 11:28 Abnormal lab findings: Abnormal lab results WBC 28.7 K/mcL (4.3-11.1) H 06/24/18 03:35 MCH 24.9 pg (28.0-33.3) L 06/24/18 03:35 MCHC 29.3 g/dL (31.6-35.5) L 06/24/18 03:35 RDW 27.4 % (11.5-14.5) H 06/24/18 03:35 Band Neutrophils % 10.0 % (0-4) H 06/22/18 04:04 Neutrophils # 28.1 K/mcL (1.6-8.9) H 06/24/18 03:35 Nucleated RBCs/100 WBC 0.1 /100 WBC (0) H 06/24/18 03:35 Poikilocytosis 1+ (Not Present) A 06/21/18 11:28 Anisocytosis 1+ (Not Present) A 06/24/18 03:35 Microcytosis Present (Not Present) A 06/22/18 04:04 Acanthocytes (Spur) 1+ (Not Present) A 06/22/18 04:04 PT 20.5 Seconds (9.4-12.1) H 06/21/18 11:28 ABG pH 7.25 pH Units (7.32-7.45) L 06/21/18 20:23 ABG pO2 83 mmHg (85-104) L 06/21/18 20:23 ABG HCO3 17 mEq/L (21-27) L 06/21/18 20:23 ABG Total CO2 18 mEq/L (20-26) L 06/21/18 20:23 ABG O2 Saturation 94 % (95-98) L 06/21/18 20:23 ABG Base Excess -10 mEq/L (-2 to 3) L 06/21/18 20:23 Sodium 126 mEq/L (136-145) L 06/24/18 03:35 Chloride 91 mEq/L (98-107) L 06/24/18 03:35 Carbon Dioxide 20 mEq/L (23-29) L 06/24/18 03:35 BUN 46 mg/dL (8-23) H 06/24/18 03:35 Creatinine 3.31 mg/dL (0.60-1.20) H 06/24/18 03:35 Est GFR ( Amer) 17 (> 60) L 06/24/18 03:35 Est GFR (Non-Af Amer) 14 (> 60) L 06/24/18 03:35 Glucose 172 mg/dL (70-105) H 06/24/18 03:35 POC Glucose 219 mg/dL (70-99) H 06/22/18 15:06 Calculated Osmolality 278 (280-300) L 06/24/18 03:35 Calcium 7.8 mg/dL (8.6-10.3) L 06/24/18 03:35 Venous Ioniz Calcium 0.78 mmol/L (1.15-1.35) L 06/22/18 04:36 Phosphorus 6.5 mg/dL (2.7-4.5) H 06/23/18 03:35 Total Bilirubin 12.7 mg/dL (0.3-1.0) H 06/24/18 03:35 Direct Bilirubin 6.8 mg/dL (0.0-0.2) H 06/21/18 21:27 Indirect Bilirubin 4.5 mg/dL (0.0-1.2) H 06/21/18 21:27 AST 50 Units/L (13-39) H 06/24/18 03:35 Alkaline Phosphatase 316 Units/L (34-104) H 06/24/18 03:35 Ammonia 64 mcmol/L (16-53) H 06/23/18 03:35 Serum Total Protein 4.6 g/dL (6.4-8.9) L 06/24/18 03:35 Albumin 2.1 g/dL (3.5-5.7) L 06/24/18 03:35 Albumin/Globulin Ratio 0.8 (1.1-2.2) L 06/24/18 03:35 Ur Specimen Adequacy See below A 06/22/18 02:15 Urine Clarity Turbid (Clear) A 06/22/18 02:15 Urine Microscopic RBC 30-50 per hpf (0-3) H 06/22/18 02:15 Urine Microscopic WBC 15-30 per hpf (0-3) H 06/22/18 02:15 Ur Squamous Epith Cells Many per lpf (None-Few) H 06/22/18 02:15 Amorphous Sediment Many (Few) H 06/22/18 02:15 Urine Bacteria Moderate per hpf (None-Few) H 06/22/18 02:15 Periton Tot Nuc Cells > 30434 TNC/mcL (0-300) H 06/21/18 13:47 Urine Opiates Screen Positive ng/mL (Xgudkg=724) H 06/22/18 02:15 Acetaminophen < 10 mcg/mL (10-20) L 06/21/18 15:05 U Benzodiazepines Scrn Positive ng/mL (Fxbpio=956) H 06/22/18 02:15 - Microbiology Findings Microbiology Findings: Microbiology, Last 48 Hours 06/22/18 02:15 Urine Culture - Final Urine,[place] No growth. - Clinical Findings Intake & Output: Intake & Output 06/23/18 06/23/18 06/24/18 15:59 23:59 07:59 Intake Total 608 / 608 608 / 608 508 / 508 Output Total 50 / 50 30 / 30 0 / 0 Balance 558 / 558 578 / 578 508 / 508 Weight 92.65 kg
[2018-06-24 08:43] VITALS: BP 84/51
[2018-06-24] MEDS ORDERED: EPINEPHrine 1 MG in D5% in Water 250 ML IVC SCH (09:00)
[2018-06-24] MEDS: Piperacillin/Tazobactam 3.375 GM in 0.9 % Sodium Chloride Mini Bag 100 ML IVPB SCH (09:41)
[2018-06-24] MEDS: OXYCODONE Oral CONC 10 MG/0.5 ML ORAL.SYG SL PRN (11:04)
[2018-06-24] MEDS ORDERED: *HR* LORazepam 2 MG/ML VIAL IVP PRN (11:13)
--- NOTE | 2018-06-24 11:19 | Palliative Progress Note ---
Date of Encounter: 06/24/18 Time of Encounter: 11:15 - Assessment and plan (1) Abdominal pain Current Visit: Yes Status: Acute Assessment and plan: Will D/C SL Oxycodone and provide Fentanyl 50mcg IV hourly if needed. Will monitor usage, she may ultimately need a continuous drip to control her end of life pain and dyspnea. MOnitor. Qualifiers: Abdominal location: generalized Qualified Code(s): R10.84 - Generalized abdominal pain (2) Anxiety Current Visit: Yes Status: Acute Assessment and plan: Will titrate IV Lorazepam to 1mg and monitor. (3) Goals of care, counseling/discussion Current Visit: Yes Status: Acute Assessment and plan: Son has arrived from [facility]. Patient's , niece are present. Son expressed how he has had long trip home to process his mother's condition, and that she would not want the current level of care she is receiving. Dr. Tj gonzalez spoke with them as well. Transitioned to comfort care. does not want to discontinue pressors until they have all had a few minutes to spend with her. Will have comfort meds available. If she survives to transition out of ICU, will evaluate for general inpatient hospice care, however, she may pass away within the next few hours. Research Quality Assurance Analyst Len Mendoza at bedside providing support to family. (4) Acute kidney injury Current Visit: Yes Status: Acute (5) Elevated bilirubin Current Visit: Yes Status: Acute (6) Metastatic colon cancer to liver Current Visit: Yes Status: Acute (7) Septic shock Current Visit: Yes Status: Acute - Time Spent With Patient Total time spent is greater than 50% in coordination of care (as documented) at patient's floor/unit and/or counseling patient: - Subjective Interval history: Weekend events noted. Patient's condition has continued to deteriorate with multiorgan failure. Hypotensive currently on 2 vasopressors. Extremely jaundiced. Resting with eyes closed, but does awaken with light stimulation. Son has arrived from [facility], and multiple family members at bedside. - Constitutional Vitals: Abnormal lab results WBC 28.7 K/mcL (4.3-11.1) H 06/24/18 03:35 MCH 24.9 pg (28.0-33.3) L 06/24/18 03:35 MCHC 29.3 g/dL (31.6-35.5) L 06/24/18 03:35 RDW 27.4 % (11.5-14.5) H 06/24/18 03:35 Band Neutrophils % 10.0 % (0-4) H 06/22/18 04:04 Neutrophils # 28.1 K/mcL (1.6-8.9) H 06/24/18 03:35 Nucleated RBCs/100 WBC 0.1 /100 WBC (0) H 06/24/18 03:35 Poikilocytosis 1+ (Not Present) A 06/21/18 11:28 Anisocytosis 1+ (Not Present) A 06/24/18 03:35 Microcytosis Present (Not Present) A 06/22/18 04:04 Acanthocytes (Spur) 1+ (Not Present) A 06/22/18 04:04 PT 20.5 Seconds (9.4-12.1) H 06/21/18 11:28 ABG pH 7.25 pH Units (7.32-7.45) L 06/21/18 20:23 ABG pO2 83 mmHg (85-104) L 06/21/18 20:23 ABG HCO3 17 mEq/L (21-27) L 06/21/18 20:23 ABG Total CO2 18 mEq/L (20-26) L 06/21/18 20:23 ABG O2 Saturation 94 % (95-98) L 06/21/18 20:23 ABG Base Excess -10 mEq/L (-2 to 3) L 06/21/18 20:23 Sodium 126 mEq/L (136-145) L 06/24/18 03:35 Chloride 91 mEq/L (98-107) L 06/24/18 03:35 Carbon Dioxide 20 mEq/L (23-29) L 06/24/18 03:35 BUN 46 mg/dL (8-23) H 06/24/18 03:35 Creatinine 3.31 mg/dL (0.60-1.20) H 06/24/18 03:35 Est GFR ( Amer) 17 (> 60) L 06/24/18 03:35 Est GFR (Non-Af Amer) 14 (> 60) L 06/24/18 03:35 Glucose 172 mg/dL (70-105) H 06/24/18 03:35 POC Glucose 219 mg/dL (70-99) H 06/22/18 15:06 Calculated Osmolality 278 (280-300) L 06/24/18 03:35 Calcium 7.8 mg/dL (8.6-10.3) L 06/24/18 03:35 Venous Ioniz Calcium 0.78 mmol/L (1.15-1.35) L 06/22/18 04:36 Phosphorus 6.5 mg/dL (2.7-4.5) H 06/23/18 03:35 Total Bilirubin 12.7 mg/dL (0.3-1.0) H 06/24/18 03:35 Direct Bilirubin 6.8 mg/dL (0.0-0.2) H 06/21/18 21:27 Indirect Bilirubin 4.5 mg/dL (0.0-1.2) H 06/21/18 21:27 AST 50 Units/L (13-39) H 06/24/18 03:35 Alkaline Phosphatase 316 Units/L (34-104) H 06/24/18 03:35 Ammonia 64 mcmol/L (16-53) H 06/23/18 03:35 Serum Total Protein 4.6 g/dL (6.4-8.9) L 06/24/18 03:35 Albumin 2.1 g/dL (3.5-5.7) L 06/24/18 03:35 Albumin/Globulin Ratio 0.8 (1.1-2.2) L 06/24/18 03:35 Ur Specimen Adequacy See below A 06/22/18 02:15 Urine Clarity Turbid (Clear) A 06/22/18 02:15 Urine Microscopic RBC 30-50 per hpf (0-3) H 06/22/18 02:15 Urine Microscopic WBC 15-30 per hpf (0-3) H 06/22/18 02:15 Ur Squamous Epith Cells Many per lpf (None-Few) H 06/22/18 02:15 Amorphous Sediment Many (Few) H 06/22/18 02:15 Urine Bacteria Moderate per hpf (None-Few) H 06/22/18 02:15 Periton Tot Nuc Cells > 72027 TNC/mcL (0-300) H 06/21/18 13:47 Urine Opiates Screen Positive ng/mL (Pbbtiw=072) H 06/22/18 02:15 Acetaminophen < 10 mcg/mL (10-20) L 06/21/18 15:05 U Benzodiazepines Scrn Positive ng/mL (Gsevav=942) H 06/22/18 02:15 General appearance: Present: mild distress - Eye Eye exam: Present: scleral icterus - Respiratory Additional comments: Respirations shallow, decreased inspiratory effort. Lungs CTA - Cardiovascular Cardiovascular exam: Present: +S1, +S2 - GI/Abdominal GI/Abdominal exam: Present: diminished bowel sounds, distended, soft - Extremities Exam Additional comments: 3-4+ edema to all extremities - Neurological Exam Additional comments: Does open eyes and moan with stimulation. - Skin Skin exam: Present: dry, warm Additional comments: Jaundice Palliative Quality Palliative Quality: Screen for Code Status: Yes, Screen for Goals of Care: Yes, Screen for Pain: Yes, If Pain Regimen Started, Initiate Bowel Regimen: NA, Screen for Nausea/Vomitting: Yes Code Status: 06/21/18 14:26 Resuscitation Status: Active [RES] Stat Comment: Resuscitation Status: Full Code 06/21/18 21:15 Resuscitation Status: Active [RES] Routine Comment: Resuscitation Status: [id number] Resuscitation Status: Active [RES] Routine Comment: Resuscitation Status: DNR-Comfort Care - Labs CBC & Chem 7: 06/24/18 03:35 06/24/18 03:35 Labs: Laboratory Results - last 24 hr 06/24/18 06/24/18 03:35 03:35 WBC 28.7 H RBC 4.82 Hgb 12.0 Hct 41.0 MCV 85.1 MCH 24.9 L MCHC 29.3 L RDW 27.4 H Plt Count 232 MPV 9.8 Seg Neutrophils % 98.0 Lymphocytes % 2.0 Neutrophils # 28.1 H Lymphocytes # 0.6 Nucleated RBCs/100 WBC 0.1 H Platelet Estimate Normal Anisocytosis 1+ A Sodium 126 L Potassium 4.1 Chloride 91 L Carbon Dioxide 20 L BUN 46 H Creatinine 3.31 H Est GFR ( Amer) 17 L Est GFR (Non-Af Amer) 14 L BUN/Creatinine Ratio 14 Glucose 172 H Calculated Osmolality 278 L Calcium 7.8 L Total Bilirubin 12.7 H AST 50 H ALT 46 Alkaline Phosphatase 316 H Serum Total Protein 4.6 L Albumin 2.1 L Globulin 2.5 Albumin/Globulin Ratio 0.8 L - ABG Interpretation ABG results: ABG ABG pH 7.25 pH Units (7.32-7.45) L 06/21/18 20:23 ABG pCO2 38 mmHg (35-45) 06/21/18 20:23 ABG pO2 83 mmHg (85-104) L 06/21/18 20:23 ABG O2 Saturation 94 % (95-98) L 06/21/18 20:23 PT/INR, D-dimer PT 20.5 Seconds (9.4-12.1) H 06/21/18 11:28 Consult Discharge Plan - Plan Referrals: Sharon Mata MD [Primary Care Provider] -
[2018-06-24] MEDS ORDERED: *HR* FentaNYL (PF) 100 MCG/2 ML VIAL IVP PRN (11:24)
--- NOTE | 2018-06-24 14:43 | Death Note ---
<Sushma Ford R - Last Filed: 06/24/18 16:50> Discharge Sum: Summary - Date and Time Date of admission: 06/21/18 14:53 Date of : 06/24/18 Time of : 14:43 - Summary Details: Pt was admitted to the hospital on 06/21 with altered mental status and decreased responsiveness. She had a PMHx of colon cancer with metastatic disease to the liver, hepatic encephalopathy, liver failure and renal failure. Initial labs in the ED showed WBC 22.7, Hgb 10.5, platelets 357, INR 1.8, APTT 35.9. ABG showed pH 7.25, pCO2 38, pO2 83, HCO3 17 and base excess -10 on HFNC with FiO2 of 60%. Patient was admitted for hepatic encephalopathy, CHEN secondary to hepato-renal syndrome, septic shock secondary to suspected SBP. Patient monitored closely in the ICU during her entire hospitalization. on 06/21, a paracentesis was done which showed cloudy fluid with >72039 total nucleated cells, 96 neutrophils, <3.0 total protein, LDH 844, glucose 27 and amylase <10. Hepatitis screen was negative. Head CT did not show any acute intracranial abnormality. Chest CT showed worsening metastatic disease. CT of the abdomen/pelvis demonstrated worsening hepatic metastatic disease with a moderate amount of free fluid in the abdomen and pelvis. No further identification of an abdominal source of infection was found in this CT scan. Patient was treated for her septic shock (likely secondary to SBP), requiring levophed, vasopressin and boluses of bicarb to maintain her blood pressure. Her blood pressures eventually decreased further requiring vasopressor. Clinically, the patient was not improving, and palliative care service was consulted to discuss code status, goals of care, etc. The patient was transitioned from full code to DNR-CCA on 06/21. The plan was to keep the patient alive until her son was able to come form [facility]. Her son arrived the morning of 06/24 and the family made the decision to withdraw aggressive treatments and to change her status to DNR-CC. At 14:43 it was determined that her heart had stopped, she was no longer breathing, no pulses could be felt, she had no reflexes and her pupils were fixed and dilated. Time of was then called with at the bedside. suspected cause of was cardiorespiratory arrest. - Additional Data Confirmation of as documented by pronouncing clinician: no pulse, no r espirations, no heart sounds, pupils fixed and dilated, other (no reflexes) Family: at bedside Attending/PCP notified?: Yes Attending physician: Francisco Veloz MD Was code activated?: No Autopsy requested?: No land examiner notified?: No Organ bank notified?: No Advance directives: No Hospice patient?: No Discharge Sum: Diag - PCOD Probable Cause of : Cardiorespiratory arrest Discharge Sum: Prov - Provider Primary care physician: Sharon Mata Admitting clinician: Francisco Veloz Attending physician on admission: Francisco Veloz Consults: 06/21/18 11:55 Consult to Interventional Radiology [CONS] Stat Consulting Provider: Radiology Interventional Cols Reason for Consult: paracentesis Call Completed: Yes 06/21/18 14:25 Consult to Palliative Care [CONS] Stat Comment: Consulting Provider: Palliative Care Maris Reason for Consult: advanced hepatic cancer with SBP and declining status Call Completed: Yes Pronouncing clinician: Sushma Ford <Skip Sierra - Last Filed: 06/25/18 06:38> Discharge Sum: Summary - Date and Time Date of admission: 06/21/18 14:53 - Additional Data Attending physician: Francisco Veloz MD Discharge Sum: Prov - Provider Primary care physician: Sharon Mata Consults: 06/21/18 11:55 Consult to Interventional Radiology [CONS] Stat Consulting Provider: Radiology Interventional Cols Reason for Consult: paracentesis Call Completed: Yes 06/21/18 14:25 Consult to Palliative Care [CONS] Stat Comment: Consulting Provider: Palliative Care Maris Reason for Consult: advanced hepatic cancer with SBP and declining status Call Completed: Yes - Attending Attestation I examined this patient and my medical decision-making was reviewed with the Resident Physician. I agree with the documented findings, disposition and treatment plan as described except to the extent set forth below. We independently had [id number] contact with the patient
== END 2018-06-24 14:45 | disposition expired | DRG 871 ==
LOC: EMEROOARM 11:00 → ICNU 14:53
PROVIDERS: ADMIT Internal Medicine Pulmonary Disease; ATTEND Internal Medicine Pulmonary Disease